=== PATIENT | female | born 1995 | race Caucasian/White ===

== ENCOUNTER 2020-02-01 10:23 | Observation (INO) | payer OTHER, SELFPAY ==
[2020-02-01] VITALS (12 sets, daily range): BP systolic 110–124; BP diastolic 55–77; PULSE 84–123; TEMP 37.1–37.3; BMI 25.9
--- NOTE | 2020-02-01 11:00 | OBADM ---
This patient, Shabana Helms, admitted to the OB room 116 at 1023 for observation for c/o leakage of fluid and contractions. Patient/family oriented to hospital policies and general routines including ID bracelet, bed and alarms, visiting hours, pain management, procedures, bathroom and other care routines, personal items, smoking policy, room service/diet, and visiting hours. Patient/Family are encouraged to report perceived risks to care and to ask questions if they do not understand what they are told or what they should do.
[2020-02-01 11:41] LABS: Add Urine Microscopic? YES; Appearance Urine Cloudy (Clear); Bacteria Urine 2+ /hpf; Bilirubin Urine Negative (Negative); Blood Urine Negative (Negative); Color Urine Yellow (Yellow); Glucose Urine UA Negative (Negative); Ketones Urine Negative (Negative); Leukocyte Esterase Ur Negative LEU/UL (Negative); Mucus Urine Rare /lpf; Nitrate Urine Negative (Negative); Protein Urine Negative (Negative); Specific Grav Ur 1.015 (1.001-1.035); Squamous Epithelial Cell Urine Moderate /hpf (Few); Urobilinogen Urine Negative mg/dL (<2.0)
[2020-02-01] MEDS: TERBUTALINE SULFATE 1 MG/ML VIAL 0.25 MG SUB-Q ×2 (12:02→13:01)
[2020-02-01] MEDS: NIFEdipine 30 MG TAB.ER.24 PO (14:12)
[2020-02-01] MEDS: cefTRIAXone 1 GM VIAL IM (14:47)
[2020-02-01 15:31] LABS: Glucose Point of Care 119 (65-105)
--- NOTE | 2020-02-01 17:39 | PM.IMHP ---
H&P: HPI History of Present Illness Date/Time: 02/01/20 17:39 Chief complaint: leaking Narrative: Shabana Helms is a 24 year old female Who presents for contractions. She reports good movement. she also reported loss of fluid. she denies any vaginal bleeding. This is a headache, blurry vision, epigastric pain. She denies any nausea, vomiting, fever, chills. She denies any urinary symptoms. Review of Systems Constitutional: Constitutional: Reports no additional constitutional complaints, Denies fatigue, Denies headache(s), Denies lethargy and Denies weakness Eyes: Eyes: Reports no additional eye complaints, Denies blurry vision and Denies photophobia ENT: Reports as per HPI, Denies headache(s) and Denies neck pain Cardiovascular: Cardiovascular: Denies chest pain, Denies diaphoresis, Denies leg edema, Denies palpitations and Denies dyspnea Respiratory: Respiratory: Denies hemoptysis, Denies dyspnea and Denies wheezing Gastrointestinal: Gastrointestinal: Denies abdominal pain, Denies melena, Denies bloating, Denies hematochezia, Denies nausea and Denies vomiting Genitourinary: Genitourinary: Reports no additional female genitourinary complaints Musculoskeletal: Musculoskeletal: Denies joint swelling, Denies neck pain, Denies numbness and Denies stiffness Neurologic: Denies Abnormal speech present, Denies confusion, Denies headache(s), Denies numbness and Denies weakness Psychiatric: Psychiatric: Denies anxiety, Denies confusion, Denies depression, Denies homicidal ideation and Denies suicidal ideation Endocrine: Endocrine: Denies fatigue and Denies palpitations Allergic/Immunologic: Allergic/Immunologic: Denies wheezing Meds Home Medications and Allergies Home Medications Medication Instructions Recorded Confirmed Type PNV comb no.58-iron bisgly-FA 1 cap PO DAILY 02/01/20 02/01/20 History [] ferrous sulfate [Slow Fe] 142 mg PO DAILY 02/01/20 02/01/20 History Allergies Allergy/AdvReac Type Severity Reaction Status Date / Time No Known Allergies Allergy Verified 09/16/15 10:29 Vital Signs Vital Signs - 24 hr 02/01/20 10:47 02/01/20 11:01 02/01/20 11:31 Temperature 98.7 F Pulse Rate 90 84 Blood Pressure 112/75 122/74 02/01/20 12:01 02/01/20 12:31 02/01/20 12:58 Temperature Pulse Rate 89 115 H 115 H Blood Pressure 120/72 122/77 122/77 02/01/20 13:01 02/01/20 14:11 02/01/20 14:12 Temperature 99.1 F Pulse Rate 114 H 123 H Blood Pressure 124/77 112/71 02/01/20 15:01 02/01/20 16:01 02/01/20 17:01 Temperature Pulse Rate 116 H 120 H 110 H Blood Pressure 117/68 117/72 110/55 L Exam Const: General: healthy appearing, comfortable and no acute distress; No confusion Orientation/consciousness: No confusion Eyes: Direct Ophthalmoscopy: No photophobia Resp: Auscultation: clear to auscultation bilaterally, no rales, no rhonchi and no wheezes Cardio: Rate: regular rate Heart sounds: no click, no murmurs and no rubs GI: Inspection: non-distended GI Palp: No abdominal tenderness Auscultation: normal bowel sounds Neuro: General: No confusion Speech: No Abnormal speech present Extrem: General: normal to inspection, no pedal edema and no calf tenderness H&P: Results Labs Labs: Urine 02/01/20 Range/Units 11:23 Urine Color Yellow (Yellow) Urine Appearance Cloudy H (Clear) Urine pH 7.0 (5.0-9.0) Ur Specific [place] 1.015 (1.001-1.035) Urine Protein Negative (Negative) mg/dL Urine Glucose (UA) Negative (Negative) mg/dL Assessment and Plan Assessment and plan (1) Urinary tract infection: Code(s): N39.0 - Urinary tract infection, site not specified Status: Acute (2) contractions: Code(s): O47.9 - False labor, unspecified Status: Acute Assessment and Plan: this patient is a 22-year-old primiparous female at 31 weeks gestation presented for possible loss of flui
== END 2020-02-01 18:16 | disposition home or self-care (01) ==
PROVIDERS: Admitting Provider Obstetrics & Gynecology; PCP Family Medicine; Visit Provider Obstetrics & Gynecology
DX: O47.9 False labor, unspecified (principal); O23.40 Unspecified infection of urinary tract in pregnancy, unspecified trimester; Z3A.00 Weeks of gestation of pregnancy not specified
CPT/HCPCS: 81001; 87086; 96372; A9270; G0378; G0379; J0696; J3105

== ENCOUNTER 2020-02-07 14:27 | Observation (INO) | payer OTHER, SELFPAY ==
[2020-02-07] VITALS (27 sets, daily range): BP systolic 117–126; BP diastolic 73–82; PULSE 96–128; TEMP 36.6; O2SAT 99–100; BMI 25.8
[2020-02-07] MEDS: NIFEdipine 10 MG CAPSULE PO (15:06)
--- NOTE | 2020-02-07 15:19 | OBADM ---
This patient, Shabana Helms, admitted to the OB room OB Post 117 for observation. Patient/family oriented to hospital policies and general routines including ID bracelet, bed and alarms, visiting hours, pain management, procedures, bathroom and other care routines, personal items, smoking policy, room service/diet, and visiting hours. Patient/Family are encouraged to report perceived risks to care and to ask questions if they do not understand what they are told or what they should do.
[2020-02-07 15:35] LABS: Add Urine Microscopic? YES; Amorphous Sediment Urine Few; Appearance Urine Cloudy (Clear); Bacteria Urine Trace /hpf; Bilirubin Urine Negative (Negative); Blood Urine Negative (Negative); Color Urine Yellow (Yellow); Glucose Urine UA Negative (Negative); Ketones Urine 1+ mg/dL (Negative); Leukocyte Esterase Ur Negative LEU/UL (NEGATIVE); Mucus Urine Rare /lpf; Nitrate Urine Negative (Negative); Protein Urine Negative (Negative); RBC Urine 0-2 /hpf (0-2); Specific Grav Ur 1.017 (1.001-1.035); Squamous Epithelial Cell Urine Few /hpf (Few); WBC Urine 0-3 /hpf (0-3)
[2020-02-07 15:50] LABS: Fetal Fibronectin Negative
[2020-02-07] MEDS: TERBUTALINE SULFATE 1 MG/ML VIAL 0.25 MG SUB-Q (16:49)
--- NOTE | 2020-02-07 18:28 | PC.NURSE ---
1819--Pt reports not feeling any contractions; TOCO reports 2 contractions.
--- NOTE | 2020-03-03 20:40 | P.PNOB_ITS ---
OB - Triage/Final Diagnosis Evaluation Laboratory results: Laboratory Tests 02/07/20 02/07/20 15:08 15:08 Urine Color Yellow Urine Appearance Cloudy H Urine pH 6.0 Ur Specific [place] 1.017 Urine Protein Negative Urine Glucose (UA) Negative Urine Ketones 1+ H Ur Blood (Man) Negative Urine Nitrate Negative Urine Bilirubin Negative Urine Urobilinogen 2.0 H Ur Leukocyte Esterase Negative Urine RBC 0-2 Urine WBC 0-3 Ur Squamous Epith Cells Few Amorphous Sediment Few H Urine Bacteria Trace Urine Mucus Rare Fibronectin Negative Final Diagnosis (1) False labor: Code(s): O47.9 - False labor, unspecified Status: Acute
== END 2020-02-07 18:15 | disposition home or self-care (01) ==
LOC: ANHOBPP 14:38
PROVIDERS: Advanced Practice Midwife; Admitting Provider Obstetrics & Gynecology; PCP Family Medicine; Visit Provider Obstetrics & Gynecology
DX: O47.9 False labor, unspecified (principal); Z3A.00 Weeks of gestation of pregnancy not specified
CPT/HCPCS: 81001; 82731; 87086; 96372; A9270; G0378; G0379; J3105

== ENCOUNTER 2020-03-16 07:04 | Inpatient (IN) | payer OTHER, SELFPAY ==
[2020-03-16] VITALS (166 sets, daily range): BP systolic 78–134; BP diastolic 38–91; PULSE 73–130; TEMP 36.5–37.3; O2SAT 97–100; BMI 27.8
--- NOTE | 2020-03-16 07:04 | LDADM ---
This patient, Shabana Helms, was admitted to Labor/Delivery/Recovery 107 on 03/16/20 at 07:04. Plans for labor, pain management and were discussed with patient. Patient/family oriented to hospital policies and general routines including ID bracelet, bed and alarms, visiting hours, pain management, procedures, bathroom and other care routines, personal items, smoking policy, room service/diet and guest tray routines, security routines, and visiting hours. Patient/Family are encouraged to report perceived risks to care and to ask questions if they do not understand what they are told or what they should do. See OBIX for further documentation.
[2020-03-16 07:58] LABS: Glucose Point of Care 95 (65-105)
[2020-03-16 08:09] LABS: Basophils Percent Auto 0.3 % (0.2-1.2); Eosinophils Absolute Auto 0.1 K/mm3 (0-0.3); Eosinophils Percent Auto 1.2 % (0-4.4); Hematocrit 38.7 % (37.0-47.0); Hemoglobin 12.6 g/dL (12.0-15.0); Immature Granulocyte Absolute 0.07 K/mm3 (0.00-0.031); Immature Granulocyte Percent A 0.7 % (0-0.5); Lymphocytes Absolute Auto 1.68 K/mm3 (0.9-3.2); Lymphocytes Percent Auto 16.5 % (18.3-44.2); Mean Corpuscular HGB Conc 32.6 g/dl (32-36); Mean Corpuscular Hemoglobin 26.4 pg (26-34); Mean Platelet Volume 10.8 fl (7.4-10.4); Monocytes Absolute Auto 0.8 K/mm3 (0.1-0.6); Monocytes Percent Auto 8.2 % (2.6-8.5); Neutrophils Absolute Auto 7.4 K/mm3 (1.3-6.7); Neutrophils Percent Auto 73.1 % (45.5-73.1); Platelet Count Result 254 k/mm3 (150-375); Red Blood Count 4.78 M/mm3 (4.2-5.4); Red Cell Distribution Width 20.2 % (11.5-14.5); White Blood Count 10.2 K/mm3 (4.5-10.0)
--- NOTE | 2020-03-16 09:04 | WPDOBADMIT ---
Obstetrics - Admit Note Admission Note: record reviewed. No pertinent additions to the history and/or any subsequent changes in the physical findings that are not consistent with the expected course of the were found. pt arrived after SROM, Diet controlled GDM, sve 1-2/80/-2, forebag noted and AROM with moderate amount of clear odorless fluid Additions to the history and/or subsequent changes in the physical findings follow. None.
[2020-03-16 11:03] LABS: Glucose Point of Care 95 (65-105)
[2020-03-16] MEDS: OXYTOCIN 30 UNITS/NS 500 ML 30 UNITS/500 ML BAG 6 UNITS IV CONT (12:15)
[2020-03-16] MEDS: LACTATED RINGERS 1,000 ML 125 ML IV CONT ×3 (12:15→17:53)
[2020-03-16] MEDS: fentaNYL CITRATE INJ (*CRX) 100 MCG/2 ML VIAL 50 MCG IV PUSH ×2 (12:45→13:27)
--- NOTE | 2020-03-16 13:47 | WPDANESEPP ---
Anes - Eval Pre Procedure Procedure: labor epidural Date/Time: 03/16/20 13:47 Surgeon: Cuca Preop Diagnosis: Pain during labor Pre Op Diagnosis: ROM Patient Data Age: 24 Gender: F Height: 5 ft 2 in Weight: 69 kg Last Vital Signs Temp 37.3 C 03/16/20 13:04 Pulse 103 H 03/16/20 13:46 BP 108/48 L 03/16/20 13:46 Pulse Ox 100 03/16/20 13:46 Allergies Allergy/AdvReac Type Severity Reaction Status Date / Time No Known Allergies Allergy Verified 03/16/20 08:11 Home Medications Medication Instructions Recorded Confirmed Type PNV comb no.58-iron bisgly-FA 1 cap PO DAILY 02/01/20 03/16/20 History Slow Fe 142 mg PO DAILY 02/01/20 03/16/20 History Laboratory Tests 03/16/20 03/16/20 03/16/20 07:52 07:54 07:54 WBC 10.2 K/mm3 H K/mm3 (4.5-10.0) RBC 4.78 M/mm3 M/mm3 (4.2-5.4) Hgb 12.6 g/dL g/dL (12.0-15.0) Hct 38.7 % % (37.0-47.0) MCV 81.0 fl fl (80-100) MCH 26.4 pg pg (26-34) MCHC 32.6 g/dl g/dl (32-36) RDW 20.2 % H % (11.5-14.5) Plt Count 254 k/mm3 k/mm3 (150-375) MPV 10.8 fl H fl (7.4-10.4) Immature Gran % (Auto) 0.7 % H % (0-0.5) Neut % (Auto) 73.1 % % (45.5-73.1) Lymph % (Auto) 16.5 % L % (18.3-44.2) [place] % (Auto) 8.2 % % (2.6-8.5) Eos % (Auto) 1.2 % % (0-4.4) Baso % (Auto) 0.3 % % (0.2-1.2) Lymph # (Auto) 1.68 K/mm3 K/mm3 (0.9-3.2) [place] # (Auto) 0.8 K/mm3 H K/mm3 (0.1-0.6) Eos # (Auto) 0.1 K/mm3 K/mm3 (0-0.3) Baso # (Auto) 0.0 K/mm3 K/mm3 (0.0-0.1) Abs Immat Gran (auto) 0.07 K/mm3 H K/mm3 (0.00-0.031) Absolute Neuts (auto) 7.4 K/mm3 H K/mm3 (1.3-6.7) Absolute Nucleated RBC 0.0 K/mm3 K/mm3 (0.0-0.012) Nucleated RBC % 0.0 % % (0.0-0.2) POC Capillary Glucose 95 mg/dl mg/dl (65-105) RPR Pending Blood Type Antibody Screen 03/16/20 03/16/20 07:54 11:01 WBC RBC Hgb Hct MCV MCH MCHC RDW Plt Count MPV Immature Gran % (Auto) Neut % (Auto) Lymph % (Auto) [place] % (Auto) Eos % (Auto) Baso % (Auto) Lymph # (Auto) [place] # (Auto) Eos # (Auto) Baso # (Auto) Abs Immat Gran (auto) Absolute Neuts (auto) Absolute Nucleated RBC Nucleated RBC % POC Capillary Glucose 95 mg/dl mg/dl (65-105) RPR Blood Type A Positive Antibody Screen Negative : gestational age (DANIEL 03/30/2020) Patient hx anesthesia problems: none Family hx anesthesia problems: none PMFSH Social History Social History Smoking status: Never smoker Gender identity (if verbalized by the patient): Female Exam Day of Procedure 03/16/20 13:47 Patient weight: normal Heart: regular rate and rhythm Lungs: clear to auscultation and normal air movement Neurological: alert and oriented
[2020-03-16] MEDS: SODIUM CHLORIDE 0.9% IV 300 ML 600 ML I-UTERINE (16:14)
[2020-03-16] MEDS: PHENYLEPHRINE 1,000 MCG/10 ML SYRINGE 100 MCG IV PUSH ×2 (16:21→16:31)
[2020-03-16] MEDS: ONDANSETRON INJ 4 MG/2 ML VIAL IV PUSH (17:50)
[2020-03-16 18:00] LABS: Glucose Point of Care 84 (65-105)
[2020-03-16 18:00] LABS: Glucose Point of Care 79 (65-105)
[2020-03-16 18:00] LABS: Glucose Point of Care 79 (65-105)
--- NOTE | 2020-03-16 22:00 | PM.OBPRVD ---
OB - Delivery Note Procedure Delivery date: 03/16/20 Procedure: vaginal delivery events: Gestational Diabetes Intrapartal events: None Delivery augmentation: rupture of membranes and pitocin Delivery monitor: external FHT and internal uterine Route of delivery: Laceration Description: None Specimen: Yes Estimated blood loss (mL): 111 Anesthesia type: Epidural Disposition: other () Baby Date of : 03/16/20 Time of : 21:21 Weeks of gestation at delivery: 38 gender: Female Weight (pounds): 7 Weight (ounces): 6 presentation: vertex position: Left Occiput Anterior Placenta delivery description: Spontaneous cord vessel description: 3 Vessels and Clamped/Cut score one minute: 9 score five minutes: 9
[2020-03-16] MEDS: OXYTOCIN 30 UNITS/NS 500 ML 30 UNITS/500 ML BAG 125 UNITS IV CONT (22:24)
[2020-03-17] VITALS: BP 114/72; PULSE 121
[2020-03-17 00:15] VITALS: BP 111/71; PULSE 121
[2020-03-17] MEDS: WITCH HAZEL 40 PADS 1 PAD TOPICAL (00:36)
[2020-03-17] MEDS: BENZOCAINE 20% AER SPR (*SP) 56 GM CAN 1 SPRAY TOPICAL (00:36)
[2020-03-17 00:40] VITALS: BP 129/83; PULSE 116; RESP 16; TEMP 37
[2020-03-17] MEDS: IBUPROFEN 600 MG TABLET PO ×2 (02:20→16:10)
[2020-03-17 05:03] LABS: Hematocrit 33.6 % (37.0-47.0); Hemoglobin 10.9 g/dL (12.0-15.0)
[2020-03-17 07:02] LABS: Rapid Plasma Reagin Non-Reactive (NonReactive)
--- NOTE | 2020-03-17 07:39 | PM.OBPNVD ---
OB - PN: Subj Subjective Date/time seen: 03/17/20 07:39 Patient comments: no complaints baby status: doing well feeding status: exclusively bottle feeding Narrative: No concerns. OB - PN: Obj Data Labs CBC & Chem 7: 03/17/20 03:56 Labs: Laboratory Results - last 24 hr 03/16/20 03/16/20 03/16/20 07:52 07:54 07:54 WBC 10.2 H RBC 4.78 Hgb 12.6 Hct 38.7 MCV 81.0 MCH 26.4 MCHC 32.6 RDW 20.2 H Plt Count 254 MPV 10.8 H Immature Gran % (Auto) 0.7 H Neut % (Auto) 73.1 Lymph % (Auto) 16.5 L [place] % (Auto) 8.2 Eos % (Auto) 1.2 Baso % (Auto) 0.3 Lymph # (Auto) 1.68 [place] # (Auto) 0.8 H Eos # (Auto) 0.1 Baso # (Auto) 0.0 Abs Immat Gran (auto) 0.07 H Absolute Neuts (auto) 7.4 H Absolute Nucleated RBC 0.0 Nucleated RBC % 0.0 POC Capillary Glucose 95 RPR Non-reactive Blood Type Antibody Screen 03/16/20 03/16/20 03/16/20 07:54 11:01 14:38 WBC RBC Hgb Hct MCV MCH MCHC RDW Plt Count MPV Immature Gran % (Auto) Neut % (Auto) Lymph % (Auto) [place] % (Auto) Eos % (Auto) Baso % (Auto) Lymph # (Auto) [place] # (Auto) Eos # (Auto) Baso # (Auto) Abs Immat Gran (auto) Absolute Neuts (auto) Absolute Nucleated RBC Nucleated RBC % POC Capillary Glucose 95 79 RPR Blood Type A Positive Antibody Screen Negative 03/16/20 03/16/20 03/17/20 16:42 17:58 03:56 WBC RBC Hgb 10.9 L Hct 33.6 L MCV MCH MCHC RDW Plt Count MPV Immature Gran % (Auto) Neut % (Auto) Lymph % (Auto) [place] % (Auto) Eos % (Auto) Baso % (Auto) Lymph # (Auto) [place] # (Auto) Eos # (Auto) Baso # (Auto) Abs Immat Gran (auto) Absolute Neuts (auto) Absolute Nucleated RBC Nucleated RBC % POC Capillary Glucose 84 79 RPR Blood Type Antibody Screen OB - PN A/P Plan day: 1 Plan: routine care Comments: Home tomorrow Time Spent With Patient Time: Total time spent is greater than 50% in coordination of care (as documented) at patient's floor/unit and/or counseling patient: Time with patient: less than 15 minutes Exam Narrative: Exam Narrative: NAD abdomen soft, nontender, fundus firm below the umbilicus Extremities nontender, 1+ edema
[2020-03-17 08:10] VITALS: BP 123/74; PULSE 89; RESP 18; TEMP 37.2; O2SAT 99
[2020-03-17] MEDS: MULTIVIT/MIN/PREN/FOL AC/IRON TABLET 1 TAB PO (08:10)
[2020-03-17] MEDS: DOCUSATE SODIUM 100 MG CAPSULE PO (08:10)
--- NOTE | 2020-03-17 12:30 | PC.NURSE ---
Consulted with patient, mother reports infant will only latch to right breast, refusing left. Mother has a nipple shield from home that she has attempted with a few times, infant refuses with shield as well. Mother reports she has pain during the entire feeding on right. Both nipples are red and dry, left is inverted. Discussed nipple shield precautions and possible complications. Instructions given on application and cleaning of shield. Patient able to return demonstration on proper application of shield. Discussed the need to initiate pumping if infant continues to nurse with the shield. Patient verbalizes understanding. Reviewed infant feeding cues, frequencies, duration of feedings, feeding elimination flow sheet, and signs of adequate intake. Demonstrated stimulation techniques to wake infant for feeding. Assisted with to breast. Reviewed positioning/alignment in cross cradle, holding breast in U hold and guided asymmetrical latch on. Infant was able to latch correctly by all latch markers. Mother reported pain of 8 from 1-10 scale. Mother appeared in pain with feeding. When came off nipple was not misshaped, long and rounded to end. Several attempts made, unable to obtain latch without pain. Attempt to left breast with Medela nipple shield. Infant was very fussy and would not latch with or without shield. Infant enticed with formula and would not maintain latch. Mother states she will pump using her own pump and bottle feed. Nipple care reviewed. Instructions given on breast pump care and usage, pumping schedule, nipple care, and collection and storage of breast milk. Encouraged [id number], breast massage and manual expression to stimulate supply. Assessed patient for correct flange size, placement and draw. Patient verbalizes and demonstrates understanding of instructions.
[2020-03-17 19:25] VITALS: BP 123/80; PULSE 101; RESP 16; TEMP 36.9
[2020-03-17] MEDS: ACETAMINOPHEN 325 MG TABLET 650 MG PO (19:25)
[2020-03-18] MEDS: IBUPROFEN 600 MG TABLET PO (05:05)
--- NOTE | 2020-03-18 05:18 | PC.NURSE ---
Patient viewed the discharge video Mother & Baby Care, The First Two Weeks . Patient was given the opportunity and encouraged to ask questions. Patient verbalized understanding of information shared and has been given the mother/baby guide for home reference.
--- NOTE | 2020-03-18 07:31 | P.DS_ITS ---
DS: Admitting Diagnosis Admitting Diagnosis Admitting Diagnosis: ROM OB - DS: Summary OB Procedures : None OB Procedures Intrapartum: Spontaneous Vag Delivery OB Procedures: : None Time Spent with Patient Time attestation: Total time spent providing and/or coordinating discharge services: DS: Data Data Completed and Pending Pending studies at discharge: Pending at discharge 03/16/20 21:54 Surgical [PTH] Routine Discharge Plan Discharge Attending physician on discharge: Edmund Thurman Discharging Clinician: Surekha Sneed Patient Disposition: Home, Self-Care Activity: pelvic rest Diet: regular Patient Instructions: Antibiotic Form Stand Alone Forms: General Discharge Information Follow-up/Referrals: Surekha Sneed, CNM [Certified Nurse Internal Specialist] - 4 Weeks Discharge Medications: Continued Slow Fe 142 mg (45 mg iron) Tablet Extended Release 142 mg PO DAILY RF: 0 PNV comb no.58-iron bisgly-FA 10-400 mg-mcg Capsule 1 cap PO DAILY RF: 0 Date of admission: 03/16/20 07:04 Primary Care Provider: Rowdy Cavazos Admitting Provider: Edmund Thurman Attending physician on admission: Edmund Thurman Condition: Stable
--- NOTE | 2020-03-18 07:31 | PM.OBPNVD ---
OB - PN: Subj Subjective Date/time seen: 03/18/20 07:31 Patient comments: no complaints baby status: doing well OB - PN: Obj Data Labs CBC & Chem 7: 03/17/20 03:56 OB - PN A/P Plan day: 2 Plan: routine care and discharge home Time Spent With Patient Time: Total time spent is greater than 50% in coordination of care (as documented) at patient's floor/unit and/or counseling patient: Exam Const: General: cooperative and alert Limitations: no limitations
[2020-03-18 08:20] VITALS: BP 120/75; PULSE 64; RESP 18; TEMP 36.8; O2SAT 99
[2020-03-18] MEDS: DOCUSATE SODIUM 100 MG CAPSULE PO (08:36)
[2020-03-18] MEDS: WITCH HAZEL 40 PADS 1 PAD TOPICAL (08:36)
[2020-03-18] MEDS: ACETAMINOPHEN 325 MG TABLET 650 MG PO (08:36)
[2020-03-18] MEDS: MULTIVIT/MIN/PREN/FOL AC/IRON TABLET 1 TAB PO (08:36)
[2020-03-18] MEDS: BENZOCAINE 20% AER SPR (*SP) 56 GM CAN 1 SPRAY TOPICAL (08:36)
[2020-03-18] MEDS: TETANUS,DIPHTHERIA,AC PERTUSSIS ADULT (0.5 ML) BOOSTRIX IM (11:27)
[2020-03-21 09:08] VITALS: BP 115/74; PULSE 87; RESP 20; TEMP 36.8; O2SAT 98
== END 2020-03-18 12:37 | disposition home or self-care (01) | DRG 807 ==
LOC: ANHLDR 08:13 → ANHOB2 03-17 00:43
PROVIDERS: Advanced Practice Midwife; Admitting Provider Obstetrics & Gynecology; PCP Family Medicine; Visit Provider Obstetrics & Gynecology
DX: O24.420 Gestational diabetes mellitus in childbirth, diet controlled (principal); Z37.0 Single live birth; Z3A.38 38 weeks gestation of pregnancy; O36.8330 Maternal care for abnormalities of the fetal heart rate or rhythm, third trimester, not applicable or unspecified; O43.123 Velamentous insertion of umbilical cord, third trimester; Z23 Encounter for immunization
CPT/HCPCS: 36415; 85014; 85018; 85025; 86592; 86850; 86900; 86901; 88307; 90471; 90653; 90715; A9270; G0008; J2370; J2405; J2590; J2795; J3010; J7030; J7120

== ENCOUNTER → 2022-08-10 11:27 | Outpatient (CLI) | payer SELFPAY ==
--- NOTE | ~2022-08-10 | XR_ITS ---
Cervical Spine: AP, lateral, open-mouth views Clinical History: Pain Findings: The normal lordotic curve is maintained. The vertebral bodies and posterior elements appea r intact. The intervertebral disc spaces are well maintained. Pre-vertebral soft tissues are unremar kable. Impression: No significant abnormality is seen. Reviewed, dictated and finalized at [facility]. Impression: No significant abnormality is seen.
== END ==
PROVIDERS: PCP Family Medicine; Visit Provider Family Medicine
DX: M54.12 Radiculopathy, cervical region (principal)
CPT/HCPCS: 72040

== ENCOUNTER 2023-12-25 19:15 | Emergency (ER) | payer OTHER, MEDICAID, SELFPAY ==
--- NOTE | ~2023-12-25 | XR_ITS ---
EXAMINATION: XR hand LT min 3V DATE: 12/25/2023 21:30 INDICATION: Pain at the base of the left thumb TECHNIQUE: Posteroanterior, oblique and lateral views of the left hand were obtained. COMPARISON: None. FINDINGS: Alignment is normal. No fracture. Joint spaces are normal. Soft tissues are unremarkable. IMPRESSION: 1. Negative left hand radiographs. Reviewed, dictated and finalized at location A.
[2023-12-25 19:22] VITALS: BP 119/71; PULSE 89; RESP 18; TEMP 36.8; O2SAT 99
[2023-12-25] MEDS: IBUPROFEN 600 MG TABLET PO (21:31)
--- NOTE | 2023-12-25 21:32 | ED.UPPEXIN ---
HPI - Extremity Injury (Upper) General Chief Complaint: Extremity Injury, Upper Stated Complaint: hand injury Time Seen by Provider: 12/25/23 20:53 Source: patient Mode of arrival: ambulatory Limitations: no limitations History of Present Illness HPI narrative: Patient is a 28-year-old female who presents to the ED with report of left hand and thumb pain. Patient reports she injured her hand/thumb 4 weeks ago in a [place] while playing roller [employer]. States she has had persistent pain since then. Complains of pain to her left thumb, thenar eminence, worse with movement. She does report intermittent tingling in her 1st through 3rd digits. Denies numbness. Patient has not taken anything for pain. Related Data Allergies Allergy/AdvReac Type Severity Reaction Status Date / Time No Known Allergies Allergy Verified 06/13/23 10:12 Review of Systems Review of Systems: All systems reviewed & are unremarkable except as noted in HPI. All systems reviewed & are unremarkable except as noted in HPI and below PMFSH Past Medical History Medical History Generalized anxiety disorder Headache disorder Social History Social History Smoking status: Never smoker Alcohol intake: current Alcohol use details: social drinker Substance use: never Substance use type: does not use Do You Feel Safe in your Home?: Yes Lack of Transportation: No Lack of Food: Never True Current Housing: I Have Housing Concerned About Future Housing: No Difficulty Paying Gas/Electric Bills: No Difficulty Paying for Meds: No Currently Unemployed: No Education: Trade/Vocational Certificate Difficulty w/ Childcare or Family Care: No Living arrangements: with family Occupation/Education: occupation Gender identity (if verbalized by the patient): Female Sexual Orientation (if Verbalized by the Patient): Straight or Heterosexual Exam Narrative: GENERAL: Well appearing, well-nourished, non-toxic, in no acute distress. HEAD: Normocephalic, atraumatic. RESPIRATORY: Airway patent, respirations nonlabored. CARDIOVASCULAR: Regular rate and rhythm. Radial pulses strong. MUSCULOSKELETAL: Moves all extremities. No gross deformities. Full range of motion of left thumb, though discomfort with flexion towards 5th digit. TTP over base of L thumb. No significant tenderness throughout anatomical snuff box. Sensation intact. +carpal compression testing with reproduction of tingling in thumb with compression. SKIN: Warm, dry, normal color. NEURO: A&O X3. Speech clear. PSYCHIATRIC: Appropriate mood and affect. Normal interaction. Course Vital Signs Vital signs: Vital Signs Temperature 98.3 F 12/25/23 19:22 Pulse Rate 89 12/25/23 19:22 Respiratory Rate 18 12/25/23 19:22 Blood Pressure 119/71 12/25/23 19:22 Pulse Oximetry 99 12/25/23 19:22 Oxygen Delivery Room Air 12/25/23 19:22 Temperature 98.3 F 12/25/23 19:22 Pulse Rate 89 12/25/23 19:22 Respiratory Rate 18 12/25/23 19:22 Blood Pressure 119/71 12/25/23 19:22 Pulse Oximetry 99 12/25/23 19:22 Oxygen Delivery Room Air 12/25/23 19:22 MDM - Extremity Injury (Upper) MDM Narrative Medical decision making narrative: Patient?s injury is consistent with musculoskeletal etiology. No signs of neurologic or vascular compromise on physical examination. Compartments are soft without signs of compartment syndrome. XR of L hand/fingers negative. Pain is consistent with finger/thumb sprain. Discussed possibility of carpal tunnel syndrome as well with patient having some paresthesias with carpal compression testing. Patient is felt to be stable for discharge home and further outpatient management and treatment. Patient placed in ANTWON bandage in the ED. Discussed JAQUAN tx, cock-up wrist splint. Will refer to hand surgery for fur
== END 2023-12-25 22:15 | disposition home or self-care (01) ==
PROVIDERS: Emergency Provider Physician Assistant; PCP Family Medicine
DX: S63.619A Unspecified sprain of unspecified finger, initial encounter (principal); T14.90XA Injury, unspecified, initial encounter; F41.9 Anxiety disorder, unspecified
CPT/HCPCS: 73130; 99283; A9270

== ENCOUNTER 2024-11-10 07:45 | Outpatient (CLI) | payer OTHER, SELFPAY ==
--- OUTSIDE RECORDS SUMMARY | 2024-11-10 07:48 | XMS_ITS | Data Portability ---
Author Organization [facility] JADETalib Address [address] [place] [address] Assessment Encounter Date Assessment Date Assessment LastModified by Organization Details LastModified Time 04/05/2024 04/05/2024 28 year old woman with past medical history of anxiety who presents to clinic today for mental health concerns. Not available 04/05/2024 13:06:14 08/27/2024 08/27/2024 29 year old woman with past medical history of anxiety who presents to clinic today for evaluation of ingrown toenail Not available 08/27/2024 13:24:57 Plan of Treatment Reminders Order Date Submit Date Provider Last Modified By Organization Details Last Modified Time Details Appointments ANY 15 2024 03:00P Ilana Sun MD Not available Not available Not available Lab CBC 2024 025 [facility], [facility] [address], [place], [address], 08/08/2024 11:59:36 CMP, serum or plasma 2024 025 [facility], [facility], [address], [place], [address], 08/08/2024 11:59:37 TSH, ultra- sensit mandie, serum 2024 025 [facility], [facility], [address], [place], [address], 08/08/2024 11:59:36 vitami n D, 25-hyd mesfin, total, serum 2024 025 [facility], [address] [facility], [address], [place], [address], 08/08/2024 11:59:37 vagina l pathog ens panel, ALEJANDRA+pr obe, vagina l fluid 2023 024 [facility], [address] [facility], [address], [place], [address], 04/26/2024 22:07:18 cytolo gy report , thin prep, smear or scrapi ng, cervic al or vagina l 2023 024 [facility], [address] [place] [address], [address], [place], [address], 04/27/2024 13:18:51 CBC w/ auto diff 2023 024 [facility], [address] [place] [address], [address], [place], [address], 07/26/2024 12:26:48 TSH + free T4, serum 2023 024 [facility], [address] [place] [address], [address], [place], [address], 07/26/2024 12:26:48 Referral physic al therap ist referr al 2023 024 [facility], [address], [place], [address], 09/20/2023 17:31:36 Procedures None record ed. Surgeries None record ed. Imaging XR, should er, 2 or more view 2023 024 [email or web address] [facility] Patient Access Centralized Scheduling, Centralized Scheduling, [address] [facility], [place], [address], 01/19/2024 16:36:32 Medication Orders fluoxe shreya 40 mg capsul e 2024 025 [id number], [address] [place], [address], 05/09/2024 12:44:07 hydrox yzine HCl 25 mg tablet 2024 025 [facility], [address] [place], [address], 05/09/2024 12:44:07 fluoxe shreya 20 mg capsul e 2023 025 [facility], [address] [place], [address], 08/27/2024 11:41:06 meloxi cam 15 mg tablet 2023 024 [facility], [address] [place], [address], 09/06/2023 15:45:00 Patient TargetsNo targets recorded. Patient Instructions Encounter Date Encounter Id Patient Instructions Last Modified By Organization Details Last Modified Time 09/06/2023 [id number] I was present an d available in the Family Medicine clinic to discuss this patient's care during the appointment. I agree with the resident's assessment and plan as documented. KGDasha Not available 09/12/2023 10:46:56 04/05/2024 [id number] A healthy lifestyle: care instructions [email or web address] Not available 04/05/2024 14:51:22 I was present in the clinic to discuss this patient at the time of the visit. I agree with the documented assessment and plan. MD bret [email or web address] Not available 04/05/2024 14:51:39 04/24/2024 [id number] I was present an d available in the Family Medicine clinic to discuss this patient's care during the appointment. I agree with the resident's assessment and plan as documented. KGDasha Not available 05/08/2024 17:14:18 05/09/2024 [id number] I was present an d available in the Family Medicine clinic to discuss this patient's care for the duration of the appointment. I agree with the resident's assessment and plan as documented with the following addendum: None. Dr. Howie Basilio MD, OB Attending Physician, [facility] [email or web address] Not available 05/16/2024 11:11:18 08/27/2024 [id number] I was present an d available in the Family Medicine clinic to discuss this patient's care during the appointment. I agree with the resident's assessment and plan as documented. BELKIS Not available 08/28/2024 09:34:08 Reason for Referral Physical Therapist Referral for Pain of left shoulder joint Referring Physician: Bret Sun, Machine Heel Sprayer, Encounter Date: 09/06/2023 Results Created Date Observation Date Name Description Value Unit Range Abnormal Flag Note LastModifiedBy Organization Detail LastModifiedTime 04/24/20 24 04/26/2024 NUSWA B VAGIN ITIS PLUS (VG+) atopobium vaginae LOW - 0 score Not Available [facility] ([facility]) [address] [place], [address], 04/26/2024 22:07:18 04/24/20 24 04/26/2024 NUSWA B VAGIN ITIS PLUS (VG+) bvab 2 LOW - 0 score Not Available [facility] ([facility]) [address] [place], [address], 04/26/2024 22:07:18 04/24/20 24 04/26/2024 NUSWA B VAGIN ITIS PLUS (VG+) megasphaera 1 LOW - 0 score Calcu late total score by tonny g the 3 indiv idual bacte rial vagin osis (BV) erwine r score s toget her. Total score is inter prete d as follo ws: Total score 0-1: Indic ates the absen ce of BV. Total score 2: Indet ermin ate for BV. Addit ional clini amelia data shoul d be evalu ated to estab alex a diagn osis. Total score 3-6: Indic ates the prese nce of BV. Not Available [facility] ([facility]) [address] [place], [address], 04/26/2024 22:07:18 04/24/20 24 04/26/2024 NUSWA B VAGIN ITIS PLUS (VG+) james albicans, ALEJANDRA NEGATI VE negati ve Not Available [facility] ([facility]) [address] [place], [address], 04/26/2024 22:07:18 04/24/20 24 04/26/2024 NUSWA B VAGIN ITIS PLUS (VG+) james glabrata, ALEJANDRA NEGATI VE negati ve Not Available [facility] ([facility]) [address] [place], [address], 04/26/2024 22:07:18 04/24/20 24 04/26/2024 NUSWA B VAGIN ITIS PLUS (VG+) trich vag by ALEJANDRA NEGATI VE negati ve Not Available [facility] ([facility]) [address] [place], [address], 04/26/2024 22:07:18 04/24/20 24 04/26/2024 NUSWA B VAGIN ITIS PLUS (VG+) chlamydia trachomatis, ALEJANDRA NEGATI VE negati ve Not Available [facility] ([facility]) [address] [place], [address], 04/26/2024 22:07:18 04/24/20 24 04/26/2024 NUSWA B VAGIN ITIS PLUS (VG+) neisseria gonorrhoeae, ALEJANDRA NEGATI VE negati ve Not Available [facility] ([facility]) [address] [place], [address], 04/26/2024 22:07:18 04/24/20 24 04/26/2024 IGP, APTIM A HPV, RFX 16/18 ,45 HPV aptima NEGATI VE negati ve This nucle ic acid ampli ficat ion test detec ts fourt een high- risk HPV types (16,1 8,31, 33,35 ,39,4 5,51, 52,56 ,58,5 9,66, 68) witho ut diffe renti ation . Not Available [facility] ([facility]) [address] [facility], [place], [address], 04/27/2024 13:18:51 04/24/20 24 04/27/2024 IGP, APTIM A HPV, RFX 16/18 ,45 diagnosis: COMMEN T NEGAT MANDIE FOR INTRA EPITH ELIAL JARRED [place] OR HARDEEP AMEZCUA . Not Available [facility] ([facility]) [address] [facility], [place], [address], 04/27/2024 13:18:51 04/24/20 24 04/27/2024 IGP, APTIM A HPV, RFX 16/18 ,45 specimen adequacy: COMMEN T Satis facto ry for evalu ation . Endoc ervic al and/o r squam ous metap lasti c cells (endo cervi amelia compo nent) are prese nt. Not Available [facility] ([facility]) [address] [facility], [place], [address], 04/27/2024 13:18:51 04/24/20 24 04/27/2024 IGP, APTIM A HPV, RFX 16/18 ,45 clinician provided ICD10: COMMEN T Z12.4 Not Available [facility] ([facility]) [address] [facility], [place], [address], 04/27/2024 13:18:51 04/24/20 24 04/27/2024 IGP, APTIM A HPV, RFX 16/18 ,45 performed by: NIDIA Soliman, Cytot maria elena denise t (ASCP ) Not Available [facility] ([facility]) [address] [place], [address], 04/27/2024 13:18:51 04/24/20 24 04/27/2024 IGP, APTIM A HPV, RFX 16/18 ,45 . . Not Available [facility] ([facility]) [address] [place], [address], 04/27/2024 13:18:51 04/24/20 24 04/27/2024 IGP, APTIM A HPV, RFX 16/18 ,45 note: NIDIA Garcia The Pap smear is a scree noah test desig erica to aid in the detec tion of dayanara ligna nt and malig nant condi tions of the uteri ne cervi x. It is not a diagn ostic proce dure and shoul d not be used as the sole means of detec ting cervi amelia cance r. Both false -posi tive and false -nega tive repor ts do occur . Not Available [facility] ([facility]) [address] [place], [address], 04/27/2024 13:18:51 04/24/20 24 04/27/2024 IGP, APTIM A HPV, RFX 16/18 ,45 test methodology: NIDIA Garcia This liqui d based ThinP rep(R ) pap test was scree erica with the use of an image guide jesus bruce. Not Available [facility] ([facility]) [address] [place], [address], 04/27/2024 13:18:51 04/24/20 24 04/27/2024 IGP, APTIM A HPV, RFX 16/18 ,45 HPV genotype reflex NIDIA Garcia Crite gustavo not met, HPV Genot ype not perfo rmed. Not Available [facility] ([facility]) [address] [facility] [place], [address], 04/27/2024 13:18:51 Result Notes None recorded. Problems Name Problem SNOMED Code Status Onset Date Resolution Date Notes Provider Name and Address Organization Details Recorded Time Generalized anxiety disorder 10094677 Active 2023 Bret Sun MD Attn: Jose wilder,[address] [facility], [place], [address], [facility] 4 12:46:22 Fatigue 10503793 Active 2023 Bret Sun MD Attn: Jose wilder,[address] [place], [address], [facility] 4 12:49:25 Depressive disorder 71163900 Active 2023 Bret Sun MD Attn: Jose wilder,[address] [place], [address], [facility] 4 13:05:47 Ingrowing toenail 137804326 Active 2024 Bret Sun MD Attn: Jose wilder,[address] [facility], [place], [address], [facility] 5 11:41:54 Problem Notes None recorded. Procedures Surgical History Date Name Laterality Status Provider Name and Address Organization Details Recorded Time Generic Procedure completed Bret Sun MD Attn: Accounting,[address] [place], [address], [facility] 08/27/2024 13:24:19 Imaging Results None recorded. Procedure Notes None recorded. Medical Equipment None Reported. Allergies No known drug allergies Medications Name Sig Start Date Stop Date Status Note LastModified by Organization Details LastModified Time fluoxetine 40 mg capsule TAKE 1 CAPSULE BY MOUTH DAILY active Not Available Not Available No t Available clonidine HCl 0.1 mg tablet 09/05 completed Not Available Not Available Not Available trazodone 50 mg tablet 09/05 completed Not Available Not Available Not Available valacyclovi r 1 gram tablet TAKE 1 TABLET BY MOUTH TWICE A DAY active Not Available Not Available No t Available meloxicam 15 mg tablet TAKE 1 TABLET EVERY DAY BY ORAL ROUTE, FOR SHOULDER PAIN. active Not Available Not Available No t Available sertraline 100 mg tablet 09/05 completed Not Available Not Available Not Available acetaminoph en 300 mg-codeine 30 mg tablet TAKE 1 TABLET EVERY 4 TO 6 HOURS NEEDED FOR PAIN active Not Available Not Available No t Available lithium carbonate 300 mg capsule TAKE 1 CAPSULE BY MOUTH TWICE DAILY active Not Available Not Available No t Available oseltamivir 75 mg capsule 09/05 completed Not Available Not Available Not Available lidocaine HCl 2 % mucosal solution TAKE 5-10MLS SWISH AND SPIT ORALLY EVERY 6 HOURS active Not Available Not Available No t Available diclofenac sodium 75 mg tablet,latosha yed release 09/05 completed Not Available Not Available Not Available hydroxyzine HCl 25 mg tablet Take 1 tablet twice a day by oral route for 30 days. 2024 active Not Available Not Available Not Avai lable mirtazapine 15 mg tablet 09/05 completed Not Available Not Available Not Available ibuprofen 600 mg tablet TAKE 1 TABLET BY MOUTH THREE TIMES A DAY active Not Available Not Available No t Available fluoxetine 20 mg capsule TAKE 1 CAPSULE EVERY DAY BY ORAL ROUTE DIRECTED FOR 30 DAYS, FOR ANXIETY, DEPRESSIO N. 08/27 completed Not Available Not Available Not Available amoxicillin 500 mg-potassiu m clavulanate 125 mg tablet TAKE 1 TABLET BY MOUTH TWICE A DAY 11/09 completed Not Available Not Available Not Available buspirone 15 mg tablet 09/05 completed Not Available Not Available Not Available escitalopra m 10 mg tablet TAKE 1 TABLET BY MOUTH DAILY 09/05 completed Not Available Not Available Not Available escitalopra m 20 mg tablet TAKE 1 TABLET BY MOUTH EVERY DAY 05/09 completed Not Available Not Available Not Available bupropion HCl XL 150 mg 24 hr tablet, extended release 09/05 completed Not Available Not Available Not Available Vitals Date Recorded Body mass index (BMI) Body weight Oxygen saturation Oxygen saturation in Arterial blood by Pulse oximetry Heart rate Systolic And Diastolic Provider Name and Address Organization Details Last Updated DateTime 5 24.2 kg/m2 89813.2 4 g 99 % 99 % 81 /min 123/82 mm[Hg] Hammad Mathews MA [facility] 5 12:00:21 Date Recorded Body height Provider Name an d Address Organization Details Last Updated DateTime 05/09/2024 157.48 cm Latosha Barragan MA [facility] 05/09/2024 11:56:18 Date Recorded Body height Body mass index (BMI) Body weight Body temperature Oxygen saturation Oxygen saturation in Arterial blood by Pulse oximetry Heart rate Systolic And Diastolic Provider Name and Address Organization Details Last Updated DateTime 5 157.48 cm 22.6 kg/m2 99895.9 6 g 98.6 [degF] 98 % 98 % 76 /min 118/77 mm[Hg] Latosha Barragan MA [facility] 5 11:25:00 Date Recorded Body height Body mass index (BMI) Body weight Body temperature Oxygen saturation Oxygen saturation in Arterial blood by Pulse oximetry Heart rate Systolic And Diastolic Provider Name and Address Organization Details Last Updated DateTime 4 157.48 cm 25.2 kg/m2 31627.3 g 97.9 [degF] 98 % 98 % 81 /min 120/80 mm[Hg] Latosha Barragan MA [facility] 4 14:50:47 Date Recorded Body height Body temperature Body mass index (BMI) Body weight Oxygen saturation Oxygen saturation in Arterial blood by Pulse oximetry Heart rate Systolic And Diastolic Provider Name and Address Organization Details Last Updated DateTime 4 157.48 cm 99.6 [degF] 25.3 kg/m2 80486.8 5 g 99 % 99 % 100 /min 122/80 mm[Hg] Latosha Barragan MA [facility] 4 11:48:45 Date Recorded Body height Body mass index (BMI) Body weight Body temperature Oxygen saturation Oxygen saturation in Arterial blood by Pulse oximetry Heart rate Systolic And Diastolic Provider Name and Address Organization Details Last Updated DateTime 4 157.48 cm 24.6 kg/m2 80744.5 3 g 98 [degF] 99 % 99 % 82 /min 122/83 mm[Hg] Hammad Mathews MA [facility] 4 11:32:47 Social History Question Answer Notes LastModified by Organizat ion Details LastModified Time Tobacco Smoking Status Never Smoker Aunugru Barragan MA null, [place] - [facility] 09/06/2023 14:49:22 What Was The Date Of Your Most Recent Tobacco Screening? 08/27/2024 Information not available 08/27/2024 Has Tobacco Cessation Counseling Been Provided? No Information not available 09/06/2023 Sex: Unknown Functional Status Question Answer Note LastModified by Organizat ion Details LastModified Time Do you use any illicit or recreational drugs? No Information not available 09/06/2023 Do you or have you ever used any other forms of tobacco or nicotine? No Information not available 09/06/2023 What is your level of alcohol consumption? Occasional Information not available 09/06/2023 Mental Status None recorded. Family History Nothing Reported. Medical History No medical history recorded. Gynecological HistoryNo gynecological history recorded. Obstetrics History GPAL:G 0 P 0 0 0 0 Immunizations Vaccine Type Date Status Note Provider Nam e and Address Organization Details Recorded Time Hib, unspecified formulation 9 completed Bret Sun MD Attn: Accounting,[address] [place], [address], [place] [facility] 09/06/2023 15:20:32 MMR 9 completed Bret Sun MD Attn: Accounting,[address] [place], [address], [place] [facility] 09/06/2023 15:20:32 COVID-19, mRNA, LNP-S, PF, 100 mcg/0.5mL dose or 50 mcg/0.25mL dose 1 completed Bret Sun MD Attn: Accounting,[address] [place], [address], [place] [facility] 09/06/2023 15:20:32 Tdap 0 completed Bret Sun MD Attn: Accounting,[address] [place], [address], [place] [facility] 09/06/2023 15:20:32 OPV 8 completed Bret Sun MD Attn: Accounting,[address] [facility], [place], [place], [address] [place] [address], [place] [facility] 09/06/2023 15:20:32 OPV 8 completed Bret Sun MD Attn: Accounting,[address] [facility], [place], [address] [place] [address], [place] [facility] 09/06/2023 15:20:32 DTP-Hib 8 completed Bret Sun MD Attn: Accounting,[address] [facility], [place], [address] [place] [address], [place] [facility] 09/06/2023 15:20:32 DTP-Hib 8 completed Bret Sun MD Attn: Accounting,[address] [facility], [place], [address] [place] [address], [place] [facility] 09/06/2023 15:20:32 DTP-Hib 8 completed Bret Sun MD Attn: Accounting,[address] [facility], [place], [address] [place] [address], [place] [facility] 09/06/2023 15:20:32 Hep B, adolescent or pediatric 8 completed Bret Sun MD Attn: Accounting,[address] [facility], [place], [address] [place] [address], [place] [facility] 09/06/2023 15:20:32 Hep B, adolescent or pediatric 8 completed Bret Sun MD Attn: Accounting,[address] [facility], [place], [address] [place] [address], [place] [facility] 09/06/2023 15:20:32 Hep B, adolescent or pediatric 8 completed Bret Sun MD Attn: Accounting,[address] [facility], [place], [address] [place] [address], [place] [facility] 09/06/2023 15:20:32 meningococcal MCV4P 5 completed Bret Sun MD Attn: Accounting,[address] [facility], [place], [address], [facility] 09/06/2023 15:20:33 Influenza, split virus, quadrivalent, PF 0 completed Bret Sun MD Attn: Accounting,[address] [facility], [place], [address], [facility] 09/06/2023 15:20:33 HPV9 4 completed Bret Sun MD Attn: Accounting,[address] [facility], [place], [address], [facility] 09/06/2023 18:04:55 Past Encounters Encounter ID Performer Location Encounter Start Date Encounter Closed Date Diagnosis/Indication Diagnosis SNOMED-CT Code Diagnosis ICD10 Code Diagnosis Note [id number] [facility] [address] [address] 09/06/2023 14:39:58 09/12/2023 13:25:54 Pain of left shoulder joint 6120217221 2612508 M25.512 reported 10/10 left shoulder pain; pain on special shoulder testing including empty can, neer's, lift off, scarf test... unclear etiology of shoulder pain but suspect impingemen t vs rotator cuff tear- will refer to PT to eval and treat- will obtain XR shoulder, can obtain MRI if XR negative and not improved with PT- meloxican for pain Adult [facility] th examination 685873318 Z00.00 last pap smear 3 years ago, was reportedly normal, due for pap- recommend pap at future visit if patient desires Human ubaldo lloma virus vaccination given 6183325249 9107 Z23 - does not recall history of HPV vaccinatio n- recommend HPV vaccinatio n [id number] [facility] [address] [address] 04/05/2024 11:09:08 04/06/2024 11:31:57 Adult health examination 009502998 Z00.00 last pap smear 3 years ago, was reportedly normal, due for pap- recommend pap at future visit if patient desires Generalize d anxiety disorder 67011441 F41.1 ARLEEN-7: 15history of anxietypre viously on escitalopr am 20mg;Previ ously also tried sertraline 100mg, buspirone 15mg in 2019, bupropion 150mg in 2018. Does not remember if they helped.- will try fluoxetine 20mg PO QD, with plan to increase to 40mg PO QD if well tolerated- f/u 4-6 weeks Fatigue 92502535 R53.83 likely d/t uncontroll ed, untreated depression - f/u CBC rule out anemia- f/u TSH rule out thyroid disorder Depressive disorder 3548 9007 F32.A PHQ-9: 18history of depression previously on escitalopr am 20mg;Previ ously also tried sertraline 100mg, buspirone 15mg in 2019, bupropion 150mg in 2018. Does not remember if they helped.- plan as above Overweight 437127800 E66 .3 [id number] MD Jose Mckee [address] [place] [address] 04/24/2024 11:20:35 05/09/2024 14:59:59 Screening for malignant neoplasm of cervix 936552140 Z12.4 Patient presents for pap smear. States she had one long ago that was normal- f/up pap smear results Vaginitis 96467703 N76.0 Noted to have green discharge and pain during pap smear. Pt amenable to nuswab testing [id number] MD Jose Mckee [address] [address] 05/09/2024 11:54:24 05/17/2024 11:25:05 Generalized anxiety disorder 20757827 F41.1 Reports worsening, though ARLEEN 7 does show some improvemen t in scoringDis cussed with patient options and pt agreeable to plan below- increase fluoxetine - start hydroxyzin e- check labs- ensure pt is speaking with therapist at next appt Headache 59294761 R51.9 takes tylenol daily for RIVERA, sometimes helps sometimes doesn't- will check labs now and discuss further at follow up appt [id number] MD Jose Mckee [address] [address] 08/27/2024 10:57:54 08/28/2024 10:27:29 Ingrowing toenail 091805856 L60.0 performed removal of ingrown toenail in clinic; left great toe (hallux)- discussed return precaution s- follow up as needed Health Concerns Section Related Observation LastModified by Organization Detai ls LastModified Time None Recorded Concern Status LastModified by Organization Details LastModified Time None Recorded Advance Directives Directive None Recorded Payers Insurance Date Sequence Insurance Name Policy Number Policy Hernandez Covered Member ID Hernandez Member ID Guarantor Name 08/27/2024 2 [facility] Shabana Helms [id number] Shabana Helms 08/27/2024 1 [facility] - DOS PRIOR TO 2024 (PPO) Shabana Helms [id number] Shabana Helms 08/27/2024 1 [place] Shabana Helms [id number] Shabana Helms 08/27/2024 1 [employer] [place] - DOS ON OR AFTER 2020 (MEDICAID REPLACEMENT - HMO) Shabana Helms [id number] Shabana Helms 08/28/2024 1 [facility] [employer] ( - PPO) Shabana Helms [id number] Shabana Helms 11/09/2024 1 [facility] () Shabana Helms [id number] Shabana Helms Notes Date Note Type Note Provider Name and Address Organization Details Recorded Time 09/06/2023 text/html 28 year old lala [place] with past medical history of anxiety who presents to clinic today to establish care, routine visit, shoulder and arm pain. here today with daughter Left shoulder pain the last 5 months. No inciting event. Maybe from the row machine?Numbness and tingling in the arm. Constant 10/10 pain. Pain used to radiate into neck but now going down her arm. No weakness noted. Tried tylenol with little relief. Has tried massages, but feels worse. Prior doctor XR neck was normal. Has not had any physical therapy. Vasu Garcia MD Attn: Accounting,[address] [facility], [place], [address], [facility] 09/12/2023 10:47:00 04/05/2024 text/html 28 year old lala greenfield with past medical history of anxiety who presents to clinic today for mental health concerns. Having symptoms of anxiety, depression. Feeling nervous about 'everything' Stopped taking escitalopram since the last visit; Was previously taking escitalopram 20mg, does not think it helped much, this stopped being filled as she stopped seeing her previous provider. Not sleeping great. Waking up several times in the middle of the night. Feeling like arms are numb. Anhedonia, poor concentration, feeling bad about herself, psychmotor retardation. Appetite is ok. Thinks she has a good support system, able to talk to friends and family if needed. Had counseling in the past, think it might have helped. Previously also tried sertraline 100mg, buspirone 15mg in 2019, bupropion 150mg in 2018. Does not remember if they helped. 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 Due for pap, prefers female provider. Kelly Del Toro MD Attn: Accounting[address] [place], [address], [facility] 04/05/2024 14:51:43 04/24/2024 text/html Patient presents for pap smear Vasu Garcia MD Attn: Accounting[address] [place], [address], [place] [facility] 05/08/2024 17:14:23 05/09/2024 text/html Patient presents to discuss her moods. She states irritability better but anxiety worse. She states she occasionally has chest pain that she believes is associated with her anxiety because she only feels it when she is anxious and it goes away when her anxiety is better. Denies CP/SOB/vision changes/RIVERA/abdomina l pain today HOWIE BASILIO MD Attn: [address] [place], [address], [place] [facility] 05/16/2024 11:11:26 08/27/2024 text/html 29 year old lala greenfield with past medical history of anxiety who presents to clinic today for evaluation of Left great toe infection. Ingrown toenail. Has been going on for a week. No fever, chills. Very uncomfortable in footwear. 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 04/24/24 pap normal. Vasu Garcia MD Attn: Accounting[address] [facility], [place], [address], [facility] 08/28/2024 09:34:12 OBGyn Episode No OBEpisode recorded.
--- OUTSIDE RECORDS SUMMARY | 2024-11-10 07:48 | XMS_ITS | Clinical Summary ---
Author Organization [facility] Address [address] [place] [address] Care Team Providers Care Environmental Studies Department Chair Name Role Phone Unavailable Primary Care Provider Unavailabl e Source Comments [facility],non-owned Affiliates and Associated Physician Practices is amultiple site organization consisting of ambulatory clinics and hospital sitesin [place], [place], [place] and [place]. This disclosure is being madepursuant to the Care Everywhere program and may not contain all information available regarding this patient. Last updated 18.[facility] Contix Allergies No known active allergies Medications * Be aware that medications may not be up to date on this document. Alwaysverify current medications with the patient. Other control insert in left upper arm Active Active Problems No known active problems Social History Tobacco Use Types Packs/Day Years Used Date Smoking Tobacco: Never Assessed Comments Unknown Sex and Gender Information Value Date Recorded Sex Assigned at Not on file Legal Sex Female 2:04 PM CDT Gender Identity Not on file Sexual Orientation Not on file Plan of Treatment Health Maintenance Due Date Last Done Comments HIV SCREENING 2012 HEPATITIS C SCREENING 06/02/2015 DTAP/TDAP/TD VACCINES (1 - Tdap) 2016 HEPATITIS B VACCINE (1 of 3 - 19+ 3-dose series) 2016 COVID-19 VACCINE ( - 2023-2 5 season) 2023 DEPRESSION SCREENING 04/25/2024 HPV VACCINE (1 - 3-dose SCDM series) 2024 INFLUENZA VACCINE (#1) 2024 ZOSTER VACCINE (1 of 2) 2047 HIB VACCINE Aged Out No longer eligi ble based on patient's age to complete this topic MENINGOCOCCAL (Group B) VACC INE SHARED DECISION-MAKING Aged Out No longer eligibl e based on patient's age to complete this topic MENINGOCOCCAL GROUPS A/C/Y/W VACCINE Aged Out No longer eligible b ased on patient's age to complete this topic PNEUMOCOCCAL VACCINE Aged Out No long er eligible based on patient's age to complete this topic Insurance [employer]
--- OUTSIDE RECORDS SUMMARY | 2024-11-10 07:48 | XMS_ITS | Continuity of Care Document ---
Author Name [facility] Organization [facility] Care Team Providers Care Marine Fisheries Technician Name Role Phone [facility] Unavailable Unavailable Allergies, Adverse Reactions, Alerts Combined list of allergies from Department of Defense and Veterans Affairs facilities. It does not include entries that were removed or entered in error. Substance Category Reaction Severity Reaction type Status Date Reported Comments Source No Known Allergies Drug allergy (disorder) active 01/26/2016 [place], [place] Immunizations Combined list of available immunizations from the Department of Defense and Veterans [facility] facilities. Immunization Series Date Given Administered By Site Reaction Lot Number CVX Code Drug Color Depositing Machine Tender Status Comments Source influenza, injectable, quadrivalent- pf 2022 [id number] 150 Seqirus complet ed influenza , injectabl e, quadrival ent-pf 02/27/23 Given Ambulat ory Pharmac y influenza, injectable, quadrivalent- pf 2021 [id number] sanofi pasteur complet ed influenza , injectabl e, quadrival ent-pf 02/27/22 Given Ambulat ory Pharmac y influenza, injectable, quadrivalent- pf 2020 [id number] GlaxoSmithKli ne complet ed influenza , injectabl e, quadrival ent-pf 04/05/21 Given Ambulat ory Pharmac y COVID Vaccine Moderna 2020 [id number] complet ed COVID Vaccine Moderna 06/15/20 Given Ambulat ory Pharmac y COVID Vaccine Moderna 2020 [id number] complet ed COVID Vaccine Moderna 05/18/20 Given Ambulat ory Pharmac y influenza, injectable, quadrivalent- pf 2020 [id number] 150 Unknown complet ed influenza , injectabl e, quadrival ent-pf 05/16/20 Given Ambulat ory Pharmac y influenza, injectable, quadrivalent- pf 2018 [id number] 150 GlaxoSmithKli ne complet ed influenza , injectabl e, quadrival ent-pf 04/07/19 Given Ambulat ory Pharmac y varicella virus vaccine 2018 [id number] Unknown complet ed varicella virus vaccine 05/20/18 Given Ambulat ory Pharmac y influenza, seasonal, injectable 2016 [id number] Unknown complet ed influenza , seasonal, injectabl e 04/02/17 Given Ambulat ory Pharmac y HepB, Adult 2016 [id number] Unknown complet ed HepB, Adult 05/23/16 Given Ambulat ory Pharmac y influenza, seasonal, injectable-pf 2015 [id number] 140 Seqirus complet ed influenza , seasonal, injectabl e-pf 02/28/16 Given Ambulat ory Pharmac y measles/mumps /rubella virus vaccine 2015 [id number] Merck & [employer] Inc complet ed measles/m umps/rube lla virus vaccine 12/19/15 Given Ambulat ory Pharmac y hepatitis A-hepatitis B vaccine 2015 [id number] 104 GlaxoSmithKli ne complet ed hepatitis A-hepatit is B vaccine 12/19/15 Given Ambulat ory Pharmac y measles, mumps and rubella virus vaccine 1 2015 [id number] 03 Merck (MSD) complet ed measles, mumps and rubella virus vaccine DoD hepatitis A and hepatitis B vaccine 2 2015 [id number] 104 [employer] (SKB) complet ed hepatitis A and hepatitis B vaccine DoD measles, mumps and rubella virus vaccine 1 2015 [id number] 03 Unknown (UNK) Not Given measles, mumps and rubella virus vaccine DoD tetanus, diphtheria, acellular pertu is 2015 [id number] 115 GlaxoSmithKli ne complet ed tetanus, diphtheri a, acellular pertussis 10/16/15 Given Ambulat ory Pharmac y adenovirus vaccine, live 2015 [id number] 143 Teva Pharmaceutica ls complet ed adenoviru s vaccine, live 10/16/15 Given Ambulat ory Pharmac y meningococcal A,C,Y,W-135 (MCV4P) 2015 [id number] 114 sanofi pasteur complet ed meningoco ccal A,C,Y,W-1 35 (MCV4P) 10/16/15 Given Ambulat ory Pharmac y hepatitis A-hepatitis B vaccine 2015 [id number] 104 GlaxoSmithKli ne complet ed hepatitis A-hepatit is B vaccine 10/16/15 Given Ambulat ory Pharmac y poliovirus vaccine, inactivated 2015 [id number] 10 sanofi pasteur complet ed polioviru s vaccine, inactivat ed 10/16/15 Given Ambulat ory Pharmac y varicella virus vaccine 2015 [id number] 21 Merck & Company Inc complet ed varicella virus vaccine 10/16/15 Given Ambulat ory Pharmac y poliovirus vaccine, inactivated 1 2015 [id number] 10 Sanofi Pasteur (PMC) complet ed polioviru s vaccine, inactivat ed DoD varicella virus vaccine 1 2015 [id number] 21 Merck (MSD) complet ed varicella virus vaccine DoD hepatitis A and hepatitis B vaccine 1 2015 [id number] 104 SmithKline (SKB) complet ed hepatitis A and hepatitis B vaccine DoD meningococcal polysaccharid e (groups A, C, Y and W-135) diphtheria toxoid conjugate vaccine (MCV4P) 1 2015 [id number] 114 Sanofi Pasteur (PMC) complet ed meningoco ccal polysacch aride (groups A, C, Y and W-135) diphtheri a toxoid conjugate vaccine (MCV4P) DoD tetanus toxoid, reduced diphtheria toxoid, and acellular pertu is vaccine, adsorbed 1 2015 [id number] 115 SmithKline (SKB) complet ed tetanus toxoid, reduced diphtheri a toxoid, and acellular pertussis vaccine, adsorbed DoD Adenovirus, type 4 and type 7, live, oral 1 2015 [id number] 143 [facility] (R) complet ed Adenoviru s, type 4 and type 7, live, oral DoD Encounters Combined list of: 1) Encounters from Department of Veterans Affairs facilities going backup to the last 18 months, not all VA inpatient encounters are included; 2) Encounters from the Department of Defense facilities going backup to 280 months. Location Location Details Encounter Type Encounter Number Reason For Visit Attending Provider ADM Date DC Date Status Disposition Source [place], [place](IEP Optometry ) OUTPATIENT [id number] Notes Entered by: JOHANN ALVARADO 14 Oct 2015 0729 ------- ------- ------- ------- -- Optomet ry Screeni IRENE Suarez 10/13 Released w/o Limitations [facility] [place]) [facility] [place] Initial Entry) OUTPATIENT [id number] DAY 1 JUAN COLIN 10/13 Released w/o Limitations [facility] [facility] [place]) [facility] [place] Hearing Conservat [place] Exam) OUTPATIENT [id number] [place] Shmuel 10/14 Released w/o Limitations [facility] [address] [facility] [place] Hearing Conserv ation Exam) [facility] [place]) OUTPATIENT [id number] DAY 3 JEFF PLATA 10/15 Released w/o Limitations [facility] [facility] [place] [place] OUTPATIENT [id number] Notes Entered by: MATTHIAS HUTN 19 Dec 2015 0858 ------- ------- ------- ------- -- RUFINA CREWS 12/18 Released w/o Limitations [facility] [address] [facility] [place] [facility] [place](C-TMC Er Module) OUTPATIENT [id number] Notes Entered by: RENETTA JOLLY 26 Jan 2016 0719 ------- ------- ------- ------- -- SOCORRO DAWN 01/25 Released with Work/Duty Limitations [facility] [facility] [place](C-TM C Er Module) Procedures Combined list of: 1) Procedures from Department of Veterans Affairs facilities going back up to thelast 18 months, not all VA non-surgical procedures are included; 2) All procedures from the Department of Defense facilities. Procedure Procedure Type Code Date Perfomer Comments Sourc e No data available for this section Ambulato ry Pharmacy DISCHARGE MEDICATIONS RECONCILED WITH THE CURRENT MEDICATION LIST IN OUTPATIENT MEDICAL RECORD (COA) (LOVE) 01/26/20 16 [facility] IMMUNIZATION ADMINISTRATION (INCLUDES PERCUTANEOUS, INTRADERMAL, SUBCUTANEOUS, OR INTRAMUSCULAR INJECTIONS); 1 VACCINE (SINGLE OR COMBINATION VACCINE/TOXOID) 12/19/19 16 [facility] ADENOVIRUS VACCINE, TYPE 7, LIVE, FOR ORAL USE 10/16/19 16 [facility] AUDIOMETRIC TESTING OF GROUPS 10/15/19 16 [facility] SCREENING TEST OF VISUAL ACUITY, QUANTITATIVE, BILATERAL 10/14/19 16 [facility] COLLECTION OF VENOUS BLOOD BY VENIPUNCTURE 10/14/19 16 [facility] Routine foot care; removal and/or trimming of corns, calluses and/or nails and preventive maintenance in specific medical conditions (e.g., diabetes), per visit 01/26/20 16 SOCORRO SHULTZ [facility] A e /Interv Discharge Meds Reconciled W/ Current Meds List Assess/Interv Discharge Meds Reconciled W/ Current Meds List [id number] 01/26/20 16 SOCORRO SHULTZ Avulsion Of Nail Plate - One Avulsion Of Nail Plate - One 46796 01/26/20 16 SOCORRO SHULTZ [facility] Immunization Administration One Vaccine Immunization Administration One Vaccine 52970 12/22/19 16 [facility] Hepatitis A And Hepatitis B (Intramuscular Use) Adult Dosage Hepatitis A And Hepatitis B (Intramuscular Use) Adult Dosage 50733 12/22/19 16 [facility] Immunization Administration Each Additional Vaccine Immunization Administration Each Additional Vaccine 72444 12/22/19 16 [facility], RUFINA [facility] Vaccines Viral Measles, Mumps and Rubella, Live Vaccines Viral Measles, Mumps and Rubella, Live 03472 12/22/19 16 [facility] Vaccines Adenovirus Type 4 Live, For Oral Use Vaccines Adenovirus Type 4 Live, For Oral Use 06531 10/16/19 16 AJ ZACARIAS [facility] Vaccines Adenovirus Type 7 Live, For Oral Use Vaccines Adenovirus Type 7 Live, For Oral Use 43264 10/16/19 16 AJ ZACARIAS Tdap Vaccine Tdap Vaccine 66955 10/16/19 16 AJ ZACARIAS [facility] Vaccines Viral Polio, Inactivated (Salk) Vaccines Viral Polio, Inactivated (Salk) 79290 10/16/19 16 AJ ZACARIAS [facility] Vaccines Viral Varicella (Active) Vaccines Viral Varicella (Active) 99271 10/16/19 16 AJ ZACARIAS [facility] Immunization Administration Each Additional Vaccine Immunization Administration Each Additional Vaccine 69237 10/16/19 16 AJ ZACARIAS [facility] Hepatitis A And Hepatitis B (Intramuscular Use) Adult Dosage Hepatitis A And Hepatitis B (Intramuscular Use) Adult Dosage 59419 10/16/19 16 AJ ZACARIAS [facility] Meningococcal Conjugate Vaccine Tetravalent (A C Y W-135) 10/16/19 16 AJ ZACARIAS [facility] Immunization Administration One Vaccine Immunization Administration One Vaccine 54087 10/16/19 16 AJ ZACARIAS [facility] Audiometry Group Testing Audiometry Group Testing 22513 10/15/19 16 CEASAR NATION [facility] Venipuncture Venipuncture 15287 10/14/19 16 JUAN COLIN [facility] Screening Test Of Visual Acuity, Quantitative, Bilateral Screening Test Of Visual Acuity, Quantitative, Bilateral 65212 10/14/19 16 IRENE VAUGHAN [facility] Social History Combined list of available smoking, tobacco, and other social history from Department of Defense and Veterans Affairs facilities. Social History Type Response Date Comment Sourc e This section is an empty social history section. [facility] Assessment and Plan Combined list of future care activities from Department of Defense and Veterans Affairs facilities (e.g., assessment and plan notes, appointments, orders, and referrals). Additional future care activities may be listed in the Plan of Care section. Result Assessment and Plan Date Source Assessment and Plan No data available for this section 11/10/2024 Ambulatory Pharmacy Functional Status Combined list of recent functional and cognitive assessments recorded at Department of Defense and Veterans Affairs ([place] Functional Gonzales Measurement (FIM) Scale: 1 = Total Assistance (Subject = 0% +), 2 = Maximal Assistance (Subject = 25% +), 3 = Moderate Assistance (Subject = 50% +), 4 = Minimal Assistance (Subject = 75% +), 5 = Supervision, 6 = Modified Gonzales (Device), 7 = Complete Gonzales (Timely, Safely). Assessment Date/Time Source Assessment Type Assessment Skill Assessment Score Assessment Details No data available for this section
--- OUTSIDE RECORDS SUMMARY | 2024-11-10 07:48 | XMS_ITS | Data Portability ---
Author Organization [facility] [place] Address [address] [place] [address] Care Team Providers Care Clinical Program Director Name Role Phone CHEYANNESusan KIYA Primary Care Provider [phone] Assessment Encounter Date Assessment Date Assessment LastModified by Organization Details LastModified Time 06/04/2020 06/04/2020 discussed weaning off lexapro and then will start prozac, to ed if any suicidal thoughts, call if needs sooner appt or will see in 5 weeks for med check, pt has counseling list. Additional precautionary measures were taken to minimize potential exposure to the Covid-19 virus during this patient s visit, including available hand field party manager upon arrive, temperature check and being asked a series of screening questions. All staff wore face coverings during this encounter, as well as provided additional cleaning and sanitizing of all surfaces, including countertops, pens, chairs, door handles, light switches, etc, prior to and following the patient s visit. [email or web address] Not available 06/04/2020 15:40:10 Plan of Treatment Reminders Order Date Submit Date Provider Last Modified By Organization Details Last Modified Time Details Appointments None recorded. Lab test, urine 2022 023 [email or web address] 1 [place], [address], [place], [address], 13:33:51 Referral None recorded. Procedures None recorded. Surgeries None recorded. Imaging None recorded. Medication Orders Nexplanon 68 mg subdermal implant 2022 023 [email or web address] 1 Not available 3 13:35:12 Prozac 20 mg capsule 2020 021 [email or web address] 1 [id number], [address], [place], [place], [id number], 3 13:30:37 Lexapro 20 mg tablet 2020 021 [email or web address] 1 [facility] #[id number], [address], [place], [place], [id number], 17:33:07 Lexapro 10 mg tablet 2019 020 [email or web address] 1 [facility] #[id number], [address], [place], [place], [id number], 13:30:22 Patient TargetsNo targets recorded. Patient Instructions Encounter Date Encounter Id Patient Instructions Last Modified By Organization Details Last Modified Time 04/16/2020 [id number] surgical trays* layran Not available 08/14/2020 17:16:59 if any suicidal thoughts to ED, call if any questions or concerns, nexplanon placed, f/u med check one month Not available 04/16/2020 12:16:05 05/02/2020 [id number] will increase lexpro to 20mg, will still take another 4 weeks to really feel it, pt aware if any suicidal thoughts to ED, pt declines counseling at this time, f/u up 4 weeks or sooner if needed Not available 05/02/2020 12:13:11 Reason for Referral None Reported. Results Created Date Observation Date Name Description Value Unit Range Abnormal Flag Note LastModifiedBy Organization Detail LastModifiedTime 04/16/20 20 04/16/2020 pregn mary lou test, urine HCG negati ve Not Available [place] [address], [place], [address], 04/16/2020 12:15:51 05/02/19 21 05/03/2020 TSH, serum or plasm a TSH reflex to FT4 0.83 mU/L 0.27-4 .20 Not Available [facility] [address], [place], [address], 05/03/2020 05:43:09 05/02/19 21 05/03/2020 vitam in D, 25-hy droxy , total , serum vitamin D 25-hydroxy 35.3 NG/mL 30.0-1 00.0 Inter preta tion of Vitam in D 25 OH: < 20 ng/mL - Defic iency 20 - 29 ng/mL - Insuf ficie ncy 30 - 100 ng/mL - Suffi cienc y > 100 ng/mL - Super -ther apeut ic- toxic ity may occur above this level . Clini amelia corre latio n requi red. Not Available [facility] ([facility]) [facility] [address], [place], [address], 05/03/2020 05:43:10 06/18/19 21 06/18/2020 US, arvind solorio md interpretati on Not Available [facility] yany [address], [place], [address], 02/04/2020 16:08:27 06/25/19 21 06/24/2020 shanika [place] follo w-up md interpretati on Not Available [facility] [address], [place], [address], 03/03/2020 15:53:41 04/01/20 23 04/01/2023 pregn mary lou test, urine HCG negati ve Not Available [place] [address], [place], [address], 04/01/2023 13:33:23 Result Notes None recorded. Problems Name Problem SNOMED Code Status Onset Date Resolution Date Notes Provider Name and Address Organization Details Recorded Time Sciatica 36199978 Completed recommen ded 10s unit, offered chiropra ctic and physical therapy helps. Recommen ded heat rest and Tylenol Keila Sales [facility] 0 16:48:21 Gestatio nal diabetes mellitus 40171377 Completed antenata l testing 39WK DLVRY Keila Sales [facility] 0 16:48:21 Marginal insertio n of umbilica l cord 75075779 Completed growth u/s Keila Sales [facility] 0 16:48:21 Low lying placenta 020665896 Completed 02/04/2020 On outside scan 2.2cm - u/s 02/04/20 20 showed resoluti on of llp. Keila Sales [facility] 0 16:48:21 Educatio n Completed 201604/16/2020 Encounte r for other general counseli ng and advice on contrace ption;Re corded Elsewher e: No Locat ion: [facility] S ource: EHR Senior Project Leader/Team Lead alivia: N Practi ce ID: [id number] Huber lable Time: 03:30:[address] [facility] 0 15:18:17 Procedur e Completed 201604/16/2020 Encounte r for checking , reinsert ion or removal of implanta ble subderma l contrace ptive;Re corded Elsewher e: No [facility] S ource: EHR Senior Project Leader/Team Lead alivia: N Practi ce ID: 0001 Huber lable Time: 03:00:[address] [facility] 0 15:18:35 Acute vaginiti s 09497539 Completed 201604/16/2020 Acute vaginiti s;Practi ce ID: [address] [facility] 0 15:18:21 Finding of regulari ty of menstrua l cycle Completed 201604/16/2020 Irregula r menstrua tion, unspecif ied;Prac alonzo ID: [address] [facility] 0 15:18:25 Syphilis test finding 572573997 Completed 201804/16/2020 Encntr screen for infectio ns w sexl mode of transmis s;Practi ce ID: [address] [facility] 0 15:18:[address] Concept Completed 201804/16/2020 Encounte r for surveill ance of other contrace ptives;P ractice ID: 0001 [facility] 15:18:37 Pregnanc y 47223947 Completed 201904/15/[address] [facility] 0 16:48:25 Problem Notes None recorded. Procedures Surgical History Date Name Laterality Status Provider Name and Address Organization Details Recorded Time 3 Control Implant Removal completed Keilamarkus Sales [facility] 04/01/2023 13:32:55 3 Control Implant Insertion completed Keilamarkus Sales [facility] 04/01/2023 13:33:17 0 Nexplanon Insert completed Zachary Sneed CNM [address], [place], [address], [facility] 04/16/2020 12:16:10 0 Control Implant Insertion completed Zachary Sneed CNM [address], [place], [address], [facility] 04/16/2020 12:16:20 Imaging Results None recorded. Procedure Notes None recorded. Medical Equipment None Reported. Allergies No known drug allergies Medications Name Sig Start Date Stop Date Status Note LastModified by Organization Details LastModified Time nifedipin e ER 30 mg tablet,ex tended release 24 hr 04/16 completed Not Available Not Available Not Available amoxicill in 500 mg capsule TAKE 1 CAPSULE BY MOUTH THREE TIMES DAILY UNTIL ALL TAKEN 04/01 completed Not Available Not Available Not Available clonidine HCl 0.1 mg tablet 04/16 completed Not Available Not Available Not Available prednison e 10 mg tablet 04/01 completed Not Available Not Available Not Available triamcino lone acetonide 0.5 % topical cream APPLY A THIN LAYER TO THE AFFECTED AREA(S) BY TOPICAL ROUTE 2 TIMES PER DAY 04/16 completed Not Available Not Available Not Available FreeStyle Lancets 28 gauge 04/16 completed Not Available Not Available Not Available sertralin e 100 mg tablet 04/16 completed Not Available Not Available Not Available metronida zole 500 mg tablet TAKE 1 TABLET BY MOUTH STAT THEN TABLET 1 TPO TWICE DAILY UNTIL ALL TAKEN 04/01 completed Not Available Not Available Not Available mirtazapi ne 15 mg tablet 04/16 completed Not Available Not Available Not Available methylpre dnisolone 4 mg tablets in a dose pack 04/01 completed Not Available Not Available Not Available fluoxetin e 20 mg capsule TAKE 1 CAPSULE BY MOUTH EVERY DAY 04/01 completed Not Available Not Available Not Available Zithromax 500 mg tablet take 2 tablet by oral route every once 11/22 completed Prescrib samuel [facility] e: No Locat ion: [facility] M odify By: rina whitman DateTime : 10/22/19 17 02:42:15 PM Not Available Not Available Not Available escitalop edouard 10 mg tablet TAKE 1 TABLET BY MOUTH DAILY 04/01 completed Not Available Not Available Not Available escitalop edouard 20 mg tablet TAKE 1 TABLET BY MOUTH DAILY active Not Available Not Available No t Available nitrofura ntoin monohydra te/macroc rystals 100 mg capsule 04/16 completed Not Available Not Available Not Available 04/16 completed Not Available Not Available Not Available FreeStyle Lite Strips 04/16 completed Not Available Not Available Not Available Nexplanon 68 mg subdermal implant Inject 1 implant by subcutan eous route. 2022 active nexplano n (office provided ) insert lot [id number] Exp 02/2025 Not Available Not Available Not Available Vitals Date Recorded Body height Body mass index (BMI) Body weight Systolic And Diastolic Provider Name and Address Organization Details Last Updated DateTime 05/02/2020 157.48 cm 23.2 kg/m2 43162.23 g 116/76 mm[Hg] Keila Sales [facility] 05/02/2020 12:02:45 Date Recorded Body height Body mass index (BMI) Body weight Systolic And Diastolic Provider Name and Address Organization Details Last Updated DateTime 06/04/2020 157.48 cm 22.9 kg/m2 88374.05 g 110/75 mm[Hg] Keila Sales [facility] 06/04/2020 15:07:41 Date Recorded Body height Body mass index (BMI) Body weight Systolic And Diastolic Provider Name and Address Organization Details Last Updated DateTime 08/20/2020 157.48 cm 21.8 kg/m2 97982.49 g 121/73 mm[Hg] Keila Sales [facility] 08/20/2020 17:32:30 Date Recorded Body height Body mass index (BMI) Body weight Systolic And Diastolic Provider Name and Address Organization Details Last Updated DateTime 04/01/2023 157.48 cm 23.2 kg/m2 08187.23 g 122/81 mm[Hg] Keila Sales [facility] 04/01/2023 13:30:04 Date Recorded Body height Body mass index (BMI) Body weight Systolic And Diastolic Provider Name and Address Organization Details Last Updated DateTime 04/16/2020 157.48 cm 24 kg/m2 87922.6 g 107/69 mm[Hg] Keila Sales [facility] 04/16/2020 11:36:14 Social History Question Answer Notes LastModified by Organizat ion Details LastModified Time Tobacco Smoking Status Never Smoker Keila brown [facility] 08/20/2020 17:32:59 Do You Have An Advance Directive? No [email or web address] Information n ot available 08/20/2020 How Many Years Have You Consumed Alcohol? 0 [email or web address] Information not available 08/20/2020 Are You Blind Or Do You Have Difficulty Seeing? No [email or web address] Information n ot available 08/20/2020 What Is Your Level Of Caffeine Consumption? Heavy [email or web address] Information not available 08/20/2020 How Much Tobacco Do You Chew? None [email or web address] Information not available 08/20/2020 In The 14 Days Before Symptom Onset, Have You Had Close Contact With A Laboratory-confirm ed COVID-19 While That Case Was Ill? No Information n ot available 08/20/2020 In The 14 Days Before Symptom Onset, Have You Had Close Contact With A Person Who Is Under Investigation For COVID-19 While That Person Was Ill? No [email or web address] Information not available 08/20/2020 Have You Been To An Area Known To Be High Risk For COVID-19? No [email or web address] Information not available 08/20/2020 Are You Deaf Or Do You Have Serious Difficulty Hearing? No [email or web address] Information not available 08/20/2020 What Type Of Diet Are You Following? REGULAR [email or web address] Information n ot available 08/20/2020 What Is The Highest Grade Or Level Of School You Have Completed Or The Highest Degree You Have Received? FL11354-3 Information not available 08/20/2020 Are There Any Guns Present In Your Home? No Information not available 08/20/2020 What Was The Date Of Your Most Recent Tobacco Screening? 04/01/2023 [email or web address] Information not available 04/01/2023 Do You Use Protection During Sex? Usually [email or web address] Information not available 08/20/2020 Do You Use Your Seat Belt Or Car Seat Routinely? Yes Information not available 08/20/2020 Do You Have Smoke And Carbon Monoxide Detectors In Your Home? Yes Information not available 08/20/2020 How Much Tobacco Do You Smoke? No [email or web address] Information not available 03/13/2020 Do You Use Sunscreen Routinely? No [email or web address] Information not available 08/20/2020 Have You Used IV Drugs? No [email or web address] Information not available 08/20/2020 Sex: Unknown Functional Status Question Answer Note LastModified by Organizat ion Details LastModified Time Do you use any illicit or recreational drugs? No [email or web address] Information not available 08/20/2020 What is your level of alcohol consumption? Occasional Information not available 03/13/2020 Do you or have you ever used smokeless tobacco? Never used smokeless tobacco Information not available 08/20/2020 Are you able to walk? 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 Never used electronic cigarettes Information not available 08/20/2020 What is your exercise level? Occasional [email or web address] Information not available 03/13/2020 Mental Status Question Answer Note LastModified by Organization D etails LastModified Time Do you feel stressed (tense, restless, nervous, or anxious, or unable to sleep at night)? [id number] [email or web address] Information not available 08/20/2020 Family History Relationship Description Onset Age of this Age Resolved Age Notes LastModified by Organization Details LastModified Time Maternal Grandfather Diabetes mellitus [email or web address] Not available 08/22 19:17:24 Maternal Grandfather Heart disease Not available 08/22 19:18:30 Mother Diabetes mellitus [email or web address] Not available 08/22 19:17:24 Mother Hypertensive disorder [email or web address] Not available 08/22 19:17:50 Mother Malignant tumor of kidney [email or web address] Not available 08/22 19:18:03 Paternal Grandmother Malignant tumor of breast [email or web address] Not available 08/22 19:17:33 Maternal Grandmother Hypertensive disorder [email or web address] Not available 08/22 19:17:50 Maternal Grandmother Disorder of thyroid gland [email or web address] Not available 08/22 19:18:20 Notes:Maternal grandfather: Cardiovascular disease, Diabetes mellitus Maternal grandmother: Thyroid disease, Hypertension Mother: Hypertension, Diabetes mellitus, Cancer, kidney Paternal grandmother: Cancer, breast Medical History Condition Response Allergies (Food, seasonal, environmental ) N Other N Breast Cancer N Drug/Latex Allergies/Reactions N Blood Transfusion N Lung Disease N Dermatologic Disorders N Defects or Inherited Disease N Breast Problem N Gestational Diabetes N Hematologic disorders N Anesthesia Complications N History of STI N Deep Vein Thrombosis N Polycystic ovary syndrome N Anxiety Disorder Y Autoimmune disease N Arthritis N Infertility N Polyps N Acid Reflux (GERD) N History of abnormal pap N Cancer N Stroke N Varicosities N Neurologic/Epilepsy N Endometriosis N High Cholesterol N Headaches N Fibromyalgia N Kidney Disease N Heart Problems N Kidney or Bladder Problems N Thyroid Problems N GI Problems N Eating Disorder N Anemia N Art (IVF or FET) N Psychiatric Illness N Ovarian Cancer N Diabetes Y Pulmonary (TB, Asthma) N Hepatitis/Liver Disease N No Past Medical History N Eczema N Urinary Tract Infection N Abuse/Domestic Violence N Asthma N Trauma/Violence N Depression/ depression Y Heart Disease N Pre-Eclampsia N Hypertension N Osteoporosis N Thrombophilias N Gynecological History Statement/Question Response Date of Last Pap Smear Current Control Method Implant Desired Control Method Date of LMP 03/11/2023 LMP Approximate Obstetrics History GPAL:G 1 P 1 0 0 1 Type Value Full Term 1 Living 1 Total 1 Past Encounters Encounter ID Performer Location Encounter Start Date Encounter Closed Date Diagnosis/Indication Diagnosis SNOMED-CT Code Diagnosis ICD10 Code Diagnosis Note [id number] Man Thurman MD [place] [address],[facility] [place] [address] 12/21/2019 11:48:29 12/23/2019 17:16:07 Routine care 644880001 Z34.02 [id number] Man Thurman MD [place] [address],[facility] [place] [address] 01/11/2020 10:34:16 01/11/2020 11:33:52 Routine care 823738858 Z34.02 Man Thurman MD [place] [address],[place] [address] 01/21/2020 14:56:50 01/21/2020 16:24:44 Gestational diabetes mellitus class A2 70891429 O24.414 [id number] Man Thurman MD [place] [address] [address] 01/22/2020 15:00:59 01/22/2020 16:07:52 Gestational diabetes mellitus class A1 66932538 O24.410 Pt here for diet teaching. Diet teaching completed. Carb counts for meals and snacks reviewed. Pt instructed on how to read nutritiona l labels and instructed on researchin g carb counts for fresh fruits and vegetables . Pt provided with print outs with some fresh food carb counts and online resources reinforced for checking fresh food serving sizes and carb counts. Pt instructed on blood sugar level goals and importance of checking blood sugar and keeping blood sugar log. Pt instructed on high protein low carb and provided with food recommenda tions. 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 Pt has an appt scheduled with SB for next week to review her BS log. Pt verbalized understand [place] [id number] Man Thurman MD [place] [address],[place] [address] 01/28/2020 15:04:43 01/28/2020 15:50:17 Routine care 399545645 Z34.02 [id number] Man Thurman MD [place] [address] [address] 02/04/2020 15:09:44 02/05/2020 09:11:01 Gestational diabetes mellitus class A1 08804586 O24.410 [id number] Man Thurman MD [place] [address],[place] [address] 02/04/2020 15:10:39 02/05/2020 09:12:12 Placental condition affecting management of mother 761319000 O43.93 O40.3XX0 Z3A.32 [id number] Man Thurman MD [place] [address] [address] 02/04/2020 15:11:06 02/04/2020 17:47:45 Polyhydramnios 83901852 O40.3XX1 [id number] MD Rell Martinez [address] [address] 02/07/2020 14:46:06 02/07/2020 16:13:00 Gestational diabetes mellitus class A1 83806806 O24.410 [id number] MD Rell Martinez [address] [address] 02/11/2020 14:50:52 02/11/2020 17:46:21 Gestational diabetes mellitus class A1 92980606 O24.410 [id number] [facility] [address],[place] [address] 02/11/2020 14:51:44 02/11/2020 17:42:24 Routine care 766751544 Z34.93 [id number] Man Thurman MD [place] [address],[place] [address] 02/11/2020 15:21:37 02/11/2020 17:42:46 condition affecting obstetrical care of mother 564808906 O36.8330 O40.3XX0 Z3A.33 [id number] Man Thurman MD [place] [address],[place] [address] 02/14/2020 14:57:05 02/14/2020 16:11:52 Gestational diabetes mellitus class A1 42638835 O24.410 [id number] Man Thurman MD [place] [address],[place] [address] 02/18/2020 15:08:00 02/19/2020 13:32:26 Gestational diabetes mellitus class A1 26213008 O24.410 [id number] MD Rell Martinez [address],[place] [address] 02/18/2020 15:08:25 02/18/2020 16:27:44 Routine care 572537978 Z34.02 [id number] MD Rell Martinez [address],[place] [address] 02/18/2020 15:31:42 02/18/2020 16:57:46 condition affecting obstetrical care of mother 776470832 O36.8330 Z3A.34 [id number] Man Thurman MD [place] [address],[place] [address] 02/21/2020 14:52:29 02/21/2020 17:31:21 Gestational diabetes mellitus class A1 19443761 O24.410 [id number] Man Thurman MD [place] [address],[place] [address] 02/25/2020 15:00:08 02/25/2020 18:07:53 Gestational diabetes mellitus class A1 25874822 O24.410 [id number] Marla Valdez [facility] [address],[place] [address] 02/25/2020 15:01:14 02/25/2020 16:35:00 Routine care 978035680 Z34.93 [id number] Man Thurman MD [place] [address],[place] [address] 02/28/2020 14:53:44 02/28/2020 16:37:20 Gestational diabetes mellitus class A1 63933089 O24.410 [id number] Man Thurman MD [place] [address],[place] [address] 03/03/2020 14:59:11 03/03/2020 17:58:28 Gestational diabetes mellitus class A1 78682845 O24.410 [id number] MD Rell Martinez [address],[place] [address] 03/03/2020 14:59:38 03/03/2020 18:00:04 Gestational diabetes mellitus 97882818 O24.410 O43.93 Z3A.36 O36.8330 [id number] MD Rell Martinez [address],[place] [address] 03/03/2020 15:00:02 03/03/2020 18:01:22 Pruritic urticarial papules and plaques of 13511740 O26.86 [id number] MD Rell Martinez [address],[place] [address] 03/06/2020 14:52:59 03/06/2020 15:47:59 Gestational diabetes mellitus class A1 65425248 O24.410 [id number] Man Thurman MD [place] [address],[place] [address] 03/10/2020 15:09:22 03/11/2020 12:03:32 Gestational diabetes mellitus class A1 45923270 O24.410 [id number] Marla Valdez [facility] [address],[place] [address] 03/10/2020 15:10:15 03/16/2020 22:04:48 [id number] Man Thurman MD [place] [address],[place] [address] 03/13/2020 14:53:44 03/13/2020 15:49:26 Gestational diabetes mellitus class A1 11712628 O24.410 [id number] Marla Valdez [facility] [address],[place] [address] 03/13/2020 14:54:12 03/14/2020 09:24:29 Routine care 360603047 Z34.93 [id number] Zachary Sneed [facility] [address],[place] [address] 04/16/2020 11:15:49 04/16/2020 12:22:04 Anxiety 06630783 F41.9 Implantati on of subcutaneous contraceptive 187031460 Z30.9 care 43554912 8 Z39.0 [id number] [facility] [address],[place] [address] 04/01/2023 12:15:15 04/01/2023 14:05:59 Screening procedure 27377899 Z13.9 Implantati on of subcutaneous contraceptive 544846688 Z30.9 leti well, f/u wwe Removal of subcutaneous contraceptive 854421143 Z30.46 [id number] Zachary Sneed [facility] [address],[place] [address] 05/02/2020 11:48:45 05/02/2020 12:14:27 Mixed anxiety and depressive disorder 965948093 F41.8 [id number] Zachary Sneed CNM [place] [address],[place] [address] 06/04/2020 14:47:57 06/04/2020 16:08:34 Mixed anxiety and depressive disorder 819839293 F41.8 [id number] Zachary Sneed CNM [place] [address],[place] [address] 08/20/2020 17:17:51 08/20/2020 21:52:52 Mixed anxiety and depressive disorder 825531937 F41.8 Resolved, pt denies any sxs Health Concerns Section Related Observation LastModified by Organization Detai ls LastModified Time None Recorded Concern Status LastModified by Organization Details LastModified Time None Recorded Advance Directives Directive N: Payers Insurance Date Sequence Insurance Name Policy Number Policy Hernandez Covered Member ID Hernandez Member ID Guarantor Name 02/21/2020 1 [facility] Shabana Helms [id number] Shabana Scooter 04/04/2023 1 [facility] [id number] James Helms [id number] Shabana Helms 04/01/2023 2 [facility] ( - PPO) Shabana Helms [id number] Shabana Helms Notes Date Note Type Note Provider Name and Address Organization Details Recorded Time 04/16/2020 text/html VisitReported bypatient.Notes:pp exam, wants nexplanon, has not been sexually active, increase in anxiety and depression, no suicidal thoughts, had anxiety prior and was on zoloft, would like to try something diff, still occ breast feeding, painful when she nurses so mostly formula. pt had nexplanon prior and aware of irreg/irreg bleeding Zachary Sneed CNM [address], [place], [address], [facility] 04/23/2020 09:31:02 05/02/2020 text/html depression not getting any better, epds getting higher, occ thoughts of self harm, no suicide, but they are rare and doesn't want to do it, just wants to feel better, reviewed that medicine still hasn't had a chance to really work yet takes 6 weeks Zachary Sneed CNM [address], [place], [address], [facility] 05/02/2020 12:13:24 06/04/2020 text/html increased lexapr o to 20mg doesn't feel very different at all, gave the option to add to lexapro or try something differerent. would like to try something diff, pt is still . no suicidal thoughts Zachary Sneed CNM [address], [place], [address], [facility] 06/04/2020 15:40:35 08/20/2020 text/html Stopped medicati on for anxiety and depression, thinks was situational, no longer with boyfriend and has had no symptoms, declines any further treatment, Zachary Sneed CNM [address], [place], [address], [facility] 08/20/2020 20:28:52 04/01/2023 text/html nexplanon remova l and replacement, happy with nexplanon, no complaints, consent signed, upt neg Zachary Sneed CNM [address], [place], [address], [facility] 04/01/2023 13:42:48 OBGyn Episode Ob Episode Information Episode Created Date Number of Fetuses Patient Bloodtype Patient rh Status Prepregnancy Weight lbs Domestic Partner Domestic Partner Phone Father Name Cane Flume Watchman Status 12/21/19 20 1 A Positive CLOSED Fetus Data First Name Last Name Admitted to NICU Weight (g) Sex Living Outcome Pediatric Complications Fetus ID Race Codes Race Delivery Type 3345.24 1 F true Full Term [id number] Vaginal Delivery Problems Problem Notes Records reviewed 02/01/2020 Problem Name Start Date End Date Resolution Snomed Code Not e Sciatica [id number] recommende d 10s unit, offered chiropractic and physical therapy helps. Recommended heat rest and Tylenol Gestational diabetes mellitus [id number] testing 39WK DLVRY Marginal insertion of umbilical cord [id number] growth u/s Low lying placenta 02/04/2020 SELFRESOLVED [id number] On outside scan 2.2cm - u/s 02/04/2020 showed resolution of llp. Alexandre Calculation Initial Alexandre Date Initial Exam Date Initial Exam Provider Initial Ultrasound Date Last Menstrual Period Date Ultra Sound Weeks Gestation 03/30/2020 12/21/2019 08/21/2019 06/24/2019 8 Eighteen To Twenty Week Alexandre Update Ultra Sound Date Fundal Height At Umbil Quickening Date Ultra Sound Latest Weeks Gestation Final Alexandre Confirmed By Final Alexandre Confirmed Date Final Alexandre Date Ultra Sound Latest Days Gestation 0 [email or web address] 12/21/2019 03/30/20 20 0 Pre- Flowsheet Flowsheet Date 12/21/2019 Gómez Score Blood Edema Fundus Height Fundus Units Glucose Ketones Leukocytes Nitrite Labor Signs Protein Cervic Dilation Cervic Effacement Cervic Station 26 Type Weight in lbs Pre/Post Dialysis Refused Weight 141.098147768944 BP Diastolic BP Location Tested BP Systolic BP Type 73 109 Fetus Heart Rate Present A 145 Fetus Movement Comments This patient is a 24-year-ol d female who presents for initial care. She is a 1. She has no history that is worrisome. We will begin routine care. She has transferred care. Flowsheet Date 01/11/2020 Gómez Score Blood Edema Fundus Height Fundus Units Glucose Ketones Leukocytes Nitrite Labor Signs Protein Cervic Dilation Cervic Effacement Cervic Station 28 trace Type Weight in lbs Pre/Post Dialysis Refused Weight 147.472368636806 BP Diastolic BP Location Tested BP Systolic BP Type 86 R arm 127 sitting Fetus Heart Rate Present A 134 Fetus Movement A Yes Comments sciatic nerve pain - recomme nded 10s unit, offered chiropractic and physical therapy helps. Recommended heat rest and Tylenol single painful contraction felt, given precautions Flowsheet Date 01/21/2020 Gómez Score Blood Edema Fundus Height Fundus Units Glucose Ketones Leukocytes Nitrite Labor Signs Protein Cervic Dilation Cervic Effacement Cervic Station 31 trace Type Weight in lbs Pre/Post Dialysis Refused Weight 146.820958172861 BP Diastolic BP Location Tested BP Systolic BP Type 72 R arm 118 sitting Fetus Heart Rate Present A 145 Fetus Movement A Yes Comments Flowsheet Date 01/22/2020 Gómez Score Blood Edema Fundus Height Fundus Units Glucose Ketones Leukocytes Nitrite Labor Signs Protein Cervic Dilation Cervic Effacement Cervic Station Type Weight in lbs Pre/Post Dialysis Refused BP Diastolic BP Location Tested BP Systolic BP Type Fetus Heart Rate Present Fetus Movement Comments Flowsheet Date 01/28/2020 Gómez Score Blood Edema Fundus Height Fundus Units Glucose Ketones Leukocytes Nitrite Labor Signs Protein Cervic Dilation Cervic Effacement Cervic Station 32 Type Weight in lbs Pre/Post Dialysis Refused Weight 148.552924075056 BP Diastolic BP Location Tested BP Systolic BP Type 78 R arm 115 sitting Fetus Heart Rate Present A 145 Fetus Movement Comments reasonably blood sugars Flowsheet Date 02/04/2020 Gómez Score Blood Edema Fundus Height Fundus Units Glucose Ketones Leukocytes Nitrite Labor Signs Protein Cervic Dilation Cervic Effacement Cervic Station Type Weight in lbs Pre/Post Dialysis Refused BP Diastolic BP Location Tested BP Systolic BP Type Fetus Heart Rate Present Fetus Movement Comments Flowsheet Date 02/04/2020 Gómez Score Blood Edema Fundus Height Fundus Units Glucose Ketones Leukocytes Nitrite Labor Signs Protein Cervic Dilation Cervic Effacement Cervic Station Type Weight in lbs Pre/Post Dialysis Refused BP Diastolic BP Location Tested BP Systolic BP Type Fetus Heart Rate Present Fetus Movement Comments Flowsheet Date 02/04/2020 Gómez Score Blood Edema Fundus Height Fundus Units Glucose Ketones Leukocytes Nitrite Labor Signs Protein Cervic Dilation Cervic Effacement Cervic Station 32 trace Type Weight in lbs Pre/Post Dialysis Refused Weight 147.199006975586 BP Diastolic BP Location Tested BP Systolic BP Type 84 R arm 121 sitting Fetus Heart Rate Present A 145 Fetus Movement A Yes Comments this patient is a 24-year-ol d 1 at 30 weeks gestation and her with polyhydramnios per today's ultrasound. We will repeated in 1 week, JOSE. She is having NSTs for marginal cord insertion. Flowsheet Date 02/07/2020 Gómez Score Blood Edema Fundus Height Fundus Units Glucose Ketones Leukocytes Nitrite Labor Signs Protein Cervic Dilation Cervic Effacement Cervic Station Type Weight in lbs Pre/Post Dialysis Refused BP Diastolic BP Location Tested BP Systolic BP Type Fetus Heart Rate Present Fetus Movement Comments Flowsheet Date 02/11/2020 Gómez Score Blood Edema Fundus Height Fundus Units Glucose Ketones Leukocytes Nitrite Labor Signs Protein Cervic Dilation Cervic Effacement Cervic Station Type Weight in lbs Pre/Post Dialysis Refused BP Diastolic BP Location Tested BP Systolic BP Type Fetus Heart Rate Present Fetus Movement Comments Flowsheet Date 02/11/2020 Gómez Score Blood Edema Fundus Height Fundus Units Glucose Ketones Leukocytes Nitrite Labor Signs Protein Cervic Dilation Cervic Effacement Cervic Station Type Weight in lbs Pre/Post Dialysis Refused BP Diastolic BP Location Tested BP Systolic BP Type Fetus Heart Rate Present Fetus Movement Comments Flowsheet Date 02/11/2020 Gómez Score Blood Edema Fundus Height Fundus Units Glucose Ketones Leukocytes Nitrite Labor Signs Protein Cervic Dilation Cervic Effacement Cervic Station 34 trace Type Weight in lbs Pre/Post Dialysis Refused Weight 151.049549190166 BP Diastolic BP Location Tested BP Systolic BP Type 76 114 Fetus Heart Rate Present Fetus Movement A Yes Comments Pt forgot bs log at home. Sh e states she has not been good about checking them. Discussed importance of monitoring closely and risks to baby if bs is not controlled. Pt will bring them in on . Encouraged classes. Discussed options. Planning to breastfeed. Flu shot done. Encouraged tdap. Having a girl Elba Bob. Flowsheet Date 02/14/2020 Gómez Score Blood Edema Fundus Height Fundus Units Glucose Ketones Leukocytes Nitrite Labor Signs Protein Cervic Dilation Cervic Effacement Cervic Station Type Weight in lbs Pre/Post Dialysis Refused BP Diastolic BP Location Tested BP Systolic BP Type Fetus Heart Rate Present Fetus Movement Comments Flowsheet Date 02/18/2020 Gómez Score Blood Edema Fundus Height Fundus Units Glucose Ketones Leukocytes Nitrite Labor Signs Protein Cervic Dilation Cervic Effacement Cervic Station Type Weight in lbs Pre/Post Dialysis Refused BP Diastolic BP Location Tested BP Systolic BP Type Fetus Heart Rate Present Fetus Movement Comments Flowsheet Date 02/18/2020 Gómez Score Blood Edema Fundus Height Fundus Units Glucose Ketones Leukocytes Nitrite Labor Signs Protein Cervic Dilation Cervic Effacement Cervic Station trace Type Weight in lbs Pre/Post Dialysis Refused Weight 154.157933528661 BP Diastolic BP Location Tested BP Systolic BP Type 75 R arm 115 sitting Fetus Heart Rate Present Fetus Movement A Yes Comments Flowsheet Date 02/18/2020 Gómez Score Blood Edema Fundus Height Fundus Units Glucose Ketones Leukocytes Nitrite Labor Signs Protein Cervic Dilation Cervic Effacement Cervic Station 34 Type Weight in lbs Pre/Post Dialysis Refused BP Diastolic BP Location Tested BP Systolic BP Type Fetus Heart Rate Present A 140 Fetus Movement Comments Good blood sugar control, to have BPP today, some unfavorable findings on NST Flowsheet Date 02/21/2020 Gmóez Score Blood Edema Fundus Height Fundus Units Glucose Ketones Leukocytes Nitrite Labor Signs Protein Cervic Dilation Cervic Effacement Cervic Station Type Weight in lbs Pre/Post Dialysis Refused BP Diastolic BP Location Tested BP Systolic BP Type Fetus Heart Rate Present Fetus Movement Comments Flowsheet Date 02/25/2020 Gómez Score Blood Edema Fundus Height Fundus Units Glucose Ketones Leukocytes Nitrite Labor Signs Protein Cervic Dilation Cervic Effacement Cervic Station Type Weight in lbs Pre/Post Dialysis Refused BP Diastolic BP Location Tested BP Systolic BP Type Fetus Heart Rate Present Fetus Movement Comments Flowsheet Date 02/25/2020 Gómez Score Blood Edema Fundus Height Fundus Units Glucose Ketones Leukocytes Nitrite Labor Signs Protein Cervic Dilation Cervic Effacement Cervic Station 35 Type Weight in lbs Pre/Post Dialysis Refused Weight 157.889428915569 BP Diastolic BP Location Tested BP Systolic BP Type 81 128 Fetus Heart Rate Present Fetus Movement A Yes Comments Pt has had 3 elevated fastin g bs and 3 slightly elevated pp over the last week. States she has not been very strict about diet. Encouraged tighter carb control and increasing protein. Will re-evaluate in 1 week. Discussed importance of tight bs control and risks of uncontrolled diabetes. Flowsheet Date 02/28/2020 Gómez Score Blood Edema Fundus Height Fundus Units Glucose Ketones Leukocytes Nitrite Labor Signs Protein Cervic Dilation Cervic Effacement Cervic Station Type Weight in lbs Pre/Post Dialysis Refused BP Diastolic BP Location Tested BP Systolic BP Type Fetus Heart Rate Present Fetus Movement Comments Flowsheet Date 03/03/2020 Gómez Score Blood Edema Fundus Height Fundus Units Glucose Ketones Leukocytes Nitrite Labor Signs Protein Cervic Dilation Cervic Effacement Cervic Station Type Weight in lbs Pre/Post Dialysis Refused BP Diastolic BP Location Tested BP Systolic BP Type Fetus Heart Rate Present Fetus Movement Comments Flowsheet Date 03/03/2020 Gómez Score Blood Edema Fundus Height Fundus Units Glucose Ketones Leukocytes Nitrite Labor Signs Protein Cervic Dilation Cervic Effacement Cervic Station Type Weight in lbs Pre/Post Dialysis Refused BP Diastolic BP Location Tested BP Systolic BP Type Fetus Heart Rate Present Fetus Movement Comments Flowsheet Date 03/03/2020 Gómez Score Blood Edema Fundus Height Fundus Units Glucose Ketones Leukocytes Nitrite Labor Signs Protein Cervic Dilation Cervic Effacement Cervic Station 38 Type Weight in lbs Pre/Post Dialysis Refused Weight 157.327637403420 BP Diastolic BP Location Tested BP Systolic BP Type 82 R arm 125 sitting Fetus Heart Rate Present A 140 Fetus Movement A Yes Comments normal BPP, Flowsheet Date 03/06/2020 Gómez Score Blood Edema Fundus Height Fundus Units Glucose Ketones Leukocytes Nitrite Labor Signs Protein Cervic Dilation Cervic Effacement Cervic Station Type Weight in lbs Pre/Post Dialysis Refused BP Diastolic BP Location Tested BP Systolic BP Type Fetus Heart Rate Present Fetus Movement Comments Flowsheet Date 03/10/2020 Gómez Score Blood Edema Fundus Height Fundus Units Glucose Ketones Leukocytes Nitrite Labor Signs Protein Cervic Dilation Cervic Effacement Cervic Station Type Weight in lbs Pre/Post Dialysis Refused BP Diastolic BP Location Tested BP Systolic BP Type Fetus Heart Rate Present Fetus Movement Comments Flowsheet Date 03/10/2020 Gómez Score Blood Edema Fundus Height Fundus Units Glucose Ketones Leukocytes Nitrite Labor Signs Protein Cervic Dilation Cervic Effacement Cervic Station Type Weight in lbs Pre/Post Dialysis Refused Weight 156.494667538515 BP Diastolic BP Location Tested BP Systolic BP Type 79 122 Fetus Heart Rate Present Fetus Movement Comments Flowsheet Date 03/13/2020 Gómez Score Blood Edema Fundus Height Fundus Units Glucose Ketones Leukocytes Nitrite Labor Signs Protein Cervic Dilation Cervic Effacement Cervic Station Type Weight in lbs Pre/Post Dialysis Refused BP Diastolic BP Location Tested BP Systolic BP Type Fetus Heart Rate Present Fetus Movement Comments Flowsheet Date 03/13/2020 Gómez Score Blood Edema Fundus Height Fundus Units Glucose Ketones Leukocytes Nitrite Labor Signs Protein Cervic Dilation Cervic Effacement Cervic Station neg trace 38 trace 0cm 50% Type Weight in lbs Pre/Post Dialysis Refused Weight 156.733509177395 BP Diastolic BP Location Tested BP Systolic BP Type 81 120 Fetus Heart Rate Present A 135 Fetus Movement A Yes Comments Occasional contractions. Hip and pelvic discomfort. Labor precautions. BS look good. Menstrual History Last Menstrual Date Menses Monthly On Bcp Conception Prior Menses Frequency Hcg Plus Date Menarche Onset Age 0306/24/2019 Genetic Screening And Infection History Question Response Note Mental Retardation/Autism false Patient's Age Will Be 35 Years Or Older At Estim ated Date of Delivery false Thalassemia (Grenadian, Kosovan, Mediterranean, Or Background): MCV < 80 false Neural Tube Defect (Meningomyelocele, Spina Bifi da, Or Anencephaly) false Congenital Heart Defect false Down Syndrome false Surendra-Sachs (eg, Scientology, Cajun, Kyrgyz-Angolan) f alse David Disease false Sickle Cell Disease Or Trait () false Hemophilia Or Other Blood Disorders false Muscular Dystrophy false Cystic Fibrosis false [place] Chorea false Intellectual Disability/Autism false If Yes, Was Person Tested For Fragile X? false Other Inherited Genetic Or Chromosomal Disorder false Maternal Metabolic Disorder (eg, Type 1 Diabetes , PKU) false Patient Or Baby's Father Had A Child With Defects Not Listed Above false Recurrent Loss, Or A Stillbirth false Medications (including Suppl ements, Vitamins, Herbs, OTC Drugs), Illicit/Recreational Drugs, Alcohol false If Yes, Agent(s) And Strength/Dosage false Any Other Genetic History false Live With Someone With TB Or Exposed To TB false Patient Or Partner Has History Of Genital Herpes false Rash Or Viral Illness Since Last Menstrual Perio d false History Of STD, Gonorrhea, Chlamydia, HPV, Syphi lis false Other Infection History false History of HIV false History of Hepatitis false Prior GBS-infected child false Hemoglobinopathy Or Carrier false Other Structural Defect false Recent Travel History Outside of Country false Delivery Information Delivery Date Delivery Type Labor Anesthesia Weeks Gestation Incision Type Labor Labor Length Hrs Delivered By Post Complications Tubal Sterilization Discharge Date Comments 0 38 ZACHARY SNEED CNM GDM, marginal cord insert Discharge Information Feeding Method Contraceptive Method Maternal HG B and HCT Levels
[2024-11-10 09:36] LABS: Lithium 0.5 mmol/L (0.6-1.2)
== END 2024-11-10 07:46 | disposition home or self-care (01) ==
LOC: ANHLAB 07:46
PROVIDERS: PCP Family Medicine; Visit Provider Family Medicine
DX: F31.81 Bipolar II disorder (principal)
CPT/HCPCS: 36415; 80178

== ENCOUNTER 2024-11-28 08:02 | Outpatient (CLI) | payer OTHER, SELFPAY ==
--- OUTSIDE RECORDS SUMMARY | 2024-11-28 08:08 | XMS_ITS | Continuity of Care Document ---
Author Name [facility] Organization [facility] Care Team Providers Care Sales Leader Name Role Phone [facility] Unavailable Unavailable Allergies, Adverse Reactions, Alerts Combined list of allergies from Department of Defense and Veterans Affairs facilities. It does not include entries that were removed or entered in error. Substance Category Reaction Severity Reaction type Status Date Reported Comments Source No Known Allergies Drug allergy (disorder) active 01/26/2016 [place] Immunizations Combined list of available immunizations from the Department of Defense and Veterans [facility] facilities. Immunization Series Date Given Administered By Site Reaction Lot Number CVX Code Drug Slot Tag Inserter Status Comments Source influenza, injectable, quadrivalent- pf 2022 [id number] 150 Seqirus complet ed influenza , injectabl e, quadrival ent-pf 02/27/23 Given Ambulat ory Pharmac y influenza, injectable, quadrivalent- pf 2021 [id number] 150 sanofi pasteur complet ed influenza , injectabl e, quadrival ent-pf 02/27/22 Given Ambulat ory Pharmac y influenza, injectable, quadrivalent- pf 2020 [id number] 150 GlaxoSmithKli ne complet ed influenza , injectabl e, quadrival ent-pf 04/05/21 Given Ambulat ory Pharmac y COVID Vaccine Moderna 2020 [id number] complet ed COVID Vaccine Moderna 06/15/20 Given Ambulat ory Pharmac y COVID Vaccine Moderna 2020 [id number] complet ed COVID Vaccine Moderna 05/18/20 Given Ambulat ory Pharmac y influenza, injectable, quadrivalent- pf 2020 [id number] 150 Unknown complet ed influenza , injectabl e, quadrival ent-pf 05/16/20 Given Ambulat ory Pharmac y influenza, injectable, quadrivalent- pf 2018 [id number] 150 GlaxoSmithKli ne complet ed influenza , injectabl e, quadrival ent-pf 04/07/19 Given Ambulat ory Pharmac y varicella virus vaccine 2018 [id number] Unknown complet ed varicella virus vaccine 05/20/18 Given Ambulat ory Pharmac y influenza, seasonal, injectable 2016 [id number] Unknown complet ed influenza , seasonal, injectabl e 04/02/17 Given Ambulat ory Pharmac y HepB, Adult 2016 [id number] Unknown complet ed HepB, Adult 05/23/16 Given Ambulat ory Pharmac y influenza, seasonal, injectable-pf 2015 [id number] 140 Seqirus complet ed influenza , seasonal, injectabl e-pf 02/28/16 Given Ambulat ory Pharmac y measles/mumps /rubella virus vaccine 2015 [id number] 03 Merck & Illumage[employer] Inc complet ed measles/m umps/rube lla virus vaccine 12/19/15 Given Ambulat ory Pharmac y hepatitis A-hepatitis B vaccine 2015 [id number] 104 GlaxoSmithKli ne complet ed hepatitis A-hepatit is B vaccine 12/19/15 Given Ambulat ory Pharmac y measles, mumps and rubella virus vaccine 1 2015 [id number] 03 Merck (MSD) complet ed measles, mumps and rubella virus vaccine DoD hepatitis A and hepatitis B vaccine 2 2015 [id number] 104 Smart Lunches (SKB) complet ed hepatitis A and hepatitis B vaccine DoD measles, mumps and rubella virus vaccine 1 2015 UNK 03 Unknown (UNK) Not Given measles, mumps and rubella virus vaccine DoD tetanus, diphtheria, acellular pertu is 2015 [id number] 115 GlaxoSmithKli ne complet ed tetanus, diphtheri a, acellular pertussis 10/16/15 Given Ambulat ory Pharmac y adenovirus vaccine, live 2015 [id number] 143 Teva Pharmaceutica ls complet ed adenoviru s vaccine, live 10/16/15 Given Ambulat ory Pharmac y meningococcal A,C,Y,W-135 (MCV4P) 2015 [id number] 114 sanofi pasteur complet ed meningoco ccal A,C,Y,W-1 35 (MCV4P) 10/16/15 Given Ambulat ory Pharmac y hepatitis A-hepatitis B vaccine 2015 [id number] 104 GlaxoSmithKli ne complet ed hepatitis A-hepatit is B vaccine 10/16/15 Given Ambulat ory Pharmac y poliovirus vaccine, inactivated 2015 [id number] 10 sanofi pasteur complet ed polioviru s vaccine, inactivat ed 10/16/15 Given Ambulat ory Pharmac y varicella virus vaccine 2015 [id number] 21 Merck & Company Inc complet ed varicella virus vaccine 10/16/15 Given Ambulat ory Pharmac y poliovirus vaccine, inactivated 1 2015 [id number] 10 Sanofi Pasteur (PMC) complet ed polioviru s vaccine, inactivat ed DoD varicella virus vaccine 1 2015 [id number] 21 Merck (MSD) complet ed varicella virus vaccine DoD hepatitis A and hepatitis B vaccine 1 2015 [id number] 104 SmithKline (SKB) complet ed hepatitis A and hepatitis B vaccine DoD meningococcal polysaccharid e (groups A, C, Y and W-135) diphtheria toxoid conjugate vaccine (MCV4P) 1 2015 [id number] 114 Sanofi Pasteur (PMC) complet ed meningoco [...] and type 7, live, oral 1 2015 [id number] 143 [facility] (R) complet ed Adenoviru s, type [...] ADM Date DC Date Status Disposition Source [place], [place](IEP Optometry ) OUTPATIENT [id number] Notes Entered by: JOHANN ALVARADO 14 Oct 2015 0729 ------- ------- ------- ------- -- Optomet ry Screeni IRENE Suarez 10/13 Released w/o Limitations [facility] [place] [facility] [place] [facility] [place] Initial Entry) OUTPATIENT [id number] DAY 1 JUAN COLIN 10/13 Released w/o Limitations [facility] [place] [facility] [place] Initial Entry) [facility] [place] Hearing Conservat [place] Exam) OUTPATIENT [id number] CEASAR [place]ATION Shmuel 10/14 Released w/o Limitations [facility] [place] [facility] [place] Hearing Conserv ation Exam) [facility] [place]) OUTPATIENT [id number] DAY 3 JEFF PLATA 10/15 Released w/o Limitations [facility] [place] [facility] [place] [facility] [place] OUTPATIENT [id number] Notes Entered by: MATTHIAS HUNT 19 Dec 2015 0858 ------- ------- ------- ------- -- RUFINA CREWS 12/18 Released w/o Limitations [facility] [place] [facility] [place] [place]-[facility] Er Module[place] OUTPATIENT [id number] Notes Entered by: RENETTA JOLLY 26 Jan 2016 0719 ------- ------- ------- ------- -- SOCORRO DAWN 01/25 Released with Work/Duty Limitations [facility] [place] [facility] [place]C-TM C Er Module) Procedures Combined list [...] OUTPATIENT MEDICAL RECORD (COA) (LOVE) 01/26/20 16 [facility] IMMUNIZATION ADMINISTRATION (INCLUDES PERCUTANEOUS, INTRADERMAL, SUBCUTANEOUS, OR INTRAMUSCULAR INJECTIONS); 1 VACCINE (SINGLE OR COMBINATION VACCINE/TOXOID) 12/19/19 16 [facility] ADENOVIRUS VACCINE, TYPE 7, LIVE, FOR ORAL USE 10/16/19 16 [facility] AUDIOMETRIC TESTING OF GROUPS 10/15/19 16 [facility] SCREENING TEST OF VISUAL ACUITY, QUANTITATIVE, BILATERAL 10/14/19 16 [facility] COLLECTION OF VENOUS BLOOD BY VENIPUNCTURE 10/14/19 16 [facility] Routine foot care; removal and/or trimming of corns, calluses and/or nails and preventive maintenance in specific medical conditions (e.g., diabetes), per visit 01/26/20 16 SOCORRO SHULTZ [facility] A e /Interv Discharge Meds Reconciled W/ Current Meds List Assess/Interv Discharge Meds Reconciled W/ Current Meds List [id number] 01/26/20 16 SOCORRO SHULTZ Avulsion Of Nail Plate - One Avulsion Of Nail Plate - One 19300 01/26/20 16 SOCORRO SHULTZ [facility] Immunization Administration One Vaccine Immunization Administration One Vaccine 23038 12/22/19 16 [facility] Hepatitis A And Hepatitis B (Intramuscular Use) Adult Dosage Hepatitis A And Hepatitis B (Intramuscular Use) Adult Dosage 86611 12/22/19 16 [facility] Immunization Administration Each Additional Vaccine Immunization Administration Each Additional Vaccine 67657 12/22/19 16 [facility] RUFINA [facility] Vaccines Viral Measles, Mumps and Rubella, Live Vaccines Viral Measles, Mumps and Rubella, Live 98291 12/22/19 16 [facility] Vaccines Adenovirus Type 4 Live, For Oral Use Vaccines Adenovirus Type 4 Live, For Oral Use 96157 10/16/19 16 AJ ZACARIAS [facility] Vaccines Adenovirus Type 7 Live, For Oral Use Vaccines Adenovirus Type 7 Live, For Oral Use 87408 10/16/19 16 AJ ZACARIAS Tdap Vaccine Tdap Vaccine 59431 10/16/19 16 AJ ZACARIAS [facility] Vaccines Viral Polio, Inactivated (Salk) Vaccines Viral Polio, Inactivated (Salk) 70701 10/16/19 16 AJ ZACARIAS [facility] Vaccines Viral Varicella (Active) Vaccines Viral Varicella (Active) 51796 10/16/19 16 AJ ZACARIAS [facility] Immunization Administration Each Additional Vaccine Immunization Administration Each Additional Vaccine 84257 10/16/19 16 AJ ZACARIAS [facility] Hepatitis A And Hepatitis B (Intramuscular Use) Adult Dosage Hepatitis A And Hepatitis B (Intramuscular Use) Adult Dosage 69684 10/16/19 16 AJ ZACARIAS [facility] Meningococcal Conjugate Vaccine Tetravalent (A C Y W-135) 10/16/19 16 AJ ZACARIAS [facility] Immunization Administration One Vaccine Immunization Administration One Vaccine 03609 10/16/19 16 AJ ZACARIAS [facility] Audiometry Group Testing Audiometry Group Testing 52085 10/15/19 16 CEASAR NATION [facility] Venipuncture Venipuncture 67404 10/14/19 16 JUAN COLIN [facility] Screening Test Of Visual Acuity, Quantitative, Bilateral Screening Test Of Visual Acuity, Quantitative, Bilateral 04819 10/14/19 16 IRENE VAUGHAN [facility] Social History Combined list of available smoking, tobacco, and other social history from Department of Defense and Veterans Affairs facilities. Social History Type Response Date Comment Sourc e This section is an empty social history section. [facility] Assessment and Plan Combined list of future care activities from Department of Defense and Veterans Affairs facilities (e.g., assessment and plan notes, appointments, orders, and referrals). Additional future care activities may be listed in the Plan of Care section. Result Assessment and Plan Date Source Assessment and Plan No data available for this section 11/28/2024 [facility]ulatory [facility]acy Functional Status Combined list of recent functional and cognitive assessments recorded at Department of Defense and [facility] [place] Functional [place] Measurement (FIM) Scale: 1 = Total Assistance (Subject = 0% +), 2 = Maximal Assistance (Subject = 25% +), 3 = Moderate Assistance (Subject = 50% +), 4 = Minimal Assistance (Subject = 75% +), 5 = Supervision, 6 = Modified [place] (Device), 7 = Complete [place] (Timely, Safely). Assessment Date/Time Source Assessment Type Assessment Skill Assessment Score Assessment Details No data available for this section
--- OUTSIDE RECORDS SUMMARY | 2024-11-28 08:08 | XMS_ITS | Clinical Summary ---
Author Organization [facility] Address [address] [place] [address] Care Team Providers Care Clinical Operations Consultant Name Role Phone Unavailable Primary Care Provider Unavailabl e Source Comments [facility],non-owned Affiliates and Associated Physician Practices is amultiple site organization consisting of ambulatory clinics and hospital sitesin [place], [place], [place] and [place]. This disclosure is being madepursuant to the Care Everywhere program and may not contain all information available regarding this patient. Last updated 18.[facility] [employer] Allergies No known active allergies Medications * [...] patient's age to complete this topic Insurance [employer]
[2024-11-28 10:07] LABS: Lithium 0.7 mmol/L (0.6-1.2)
== END 2024-11-28 08:03 | disposition home or self-care (01) ==
PROVIDERS: PCP Family Medicine; Visit Provider Family Medicine
DX: F31.81 Bipolar II disorder (principal)
CPT/HCPCS: 36415; 80178

== ENCOUNTER 2025-01-30 09:59 | Outpatient (CLI) | payer OTHER, SELFPAY ==
[2025-01-30 10:54] LABS: Hematocrit 38.3 % (37.0-47.0); Hemoglobin 12.3 g/dL (12.0-15.0); Immature Granulocyte Percent A 0.3 % (0-0.5); Lymphocytes Absolute Auto 1.75 K/mm3 (0.9-3.2); Mean Corpuscular HGB Conc 32.1 g/dl (32-36); Mean Corpuscular Hemoglobin 29.4 pg (26-34); Mean Corpuscular Volume 91.4 fl (80-100); Nucleated Red Blood Cells Absolute Auto 0.000 K/mm3 (0.0-0.012); Nucleated Red Blood Cells Perc 0.0 % (0.0-0.2); Platelet Count Result 323 k/mm3 (150-375); Red Blood Count 4.19 M/mm3 (4.2-5.4); White Blood Count 6.3 K/mm3 (4.5-10.0)
[2025-01-30 11:32] LABS: Lithium 0.2 mmol/L (0.6-1.2)
[2025-01-30 11:34] LABS: Alanine Aminotransferase 14 U/L (6-35); Albumin Level 4.3 g/dL (3.5-5.1); Alkaline Phosphatase 59 U/L (38-126); Anion Gap 6 mmol/L (4-12); Aspartate Amino Transferase 26 U/L (14-36); Bilirubin,Total 0.4 mg/dL (0.2-1.3); Blood Urea Nitrogen 8 mg/dL (7-17); Calcium 9.0 mg/dL (8.4-10.2); Carbon Dioxide 26 mmol/L (22-30); Chloride 105 mmol/L (98-107); Estimated Glomerular Filt Rate > 60; Glucose 69 mg/dL (65-110); Potassium 4.0 mmol/L (3.4-5.0); Sodium 137 mmol/L (137-145); Total Protein 7.4 g/dL (6.3-8.2)
[2025-01-30 11:48] LABS: Thyroid Stimulating Hormone 0.975 uIU/mL (0.465-4.680)
== END 2025-01-30 10:00 | disposition home or self-care (01) ==
LOC: ANHLAB 10:00
PROVIDERS: PCP Family Medicine; Visit Provider Family Medicine
DX: F31.81 Bipolar II disorder (principal); Z79.899 Other long term (current) drug therapy
CPT/HCPCS: 36415; 80053; 80178; 84443; 85025